=== PATIENT | female | born 1990 | race Caucasian/White ===

== ENCOUNTER 2019-11-24 17:32 | Emergency (ER) | payer BC, SELFPAY ==
[2019-11-24 17:51] VITALS: BP 149/97; PULSE 92; RESP 16; TEMP 36.4; O2SAT 97; BMI 33.4
--- NOTE | 2019-11-24 18:00 | ED_ITS ---
Entered by Luz Miranda, acting as scribe for Nov 24, 2019 17:32 HPI - Back Pain/Injury General: Chief Complaint: Back Pain/Injury Stated Complaint: Back pain Time Seen by Provider: 11/24/19 17:58 Source: patient Mode of arrival: ambulatory Limitations: no limitations History of Present Illness: HPI Narrative: 29 yo female presents to ED with complaints of back pain (sciatica). She said she woke with the pain this morning. She said just touching her low back hurts. She said moving and walking causes more pain. She said the pain is going down her R leg. She said she was here about a year ago and was told she had a deteriorating disc. MD elicited complaint: back pain Pertinent past history: prior back pain Onset (ago): hour(s) (woke this morning with the pain) Timing: constant Severity: severe Similar Symptoms Previously: Yes Quality: burning and sharp Location: lumbar spine Radiation: right upper leg Exacerbating factors: movement Relieving factors: none Context: other (woke with the pain) Associated symptoms: Reports difficulty walking; Deny abdominal pain, chills, fever(s), nausea or vomiting Treatments prior to arrival: NSAIDS Work related injury: No Review of Systems Const: Denies: fever or chills Eyes: Denies: change in vision ENMT: Denies: throat pain or mouth pain Card: Denies: chest pain Resp: Denies: shortness of breath GI: Denies: abdominal pain, nausea, vomiting or diarrhea : Denies: difficulty urinating Musc: Reports: back pain; Denies: joint pain Skin/Breast: Denies: rash Neuro: Reports: difficulty walking; Denies: headache or behavioral changes Psych: Denies: depression Endo: Denies: excessive urination Balta/Lymph: Denies: easy bruising All/Imm: Denies: hives PFSH ED PFSH: Statuses (acute, chronic, etc) shown below reflect problem list status as previously entered and may not be historically accurate Social History Smoking and tobacco status: current every day smoker Physical Exam Const: COMMON NORMALS: no apparent distress and healthy appearing HENMT: COMMON NORMALS: normocephalic and external nose normal HEAD & SCALP: normocephalic NOSE: external nose normal and no nasal discharge (nasal dischage) Eye: COMMON NORMALS: PERRL PUPIL: Yes PERRL Neck/C-Spine: COMMON NORMALS: full ROM and no lymphadenopathy Chest: COMMONS NORMALS: inspection of chest normal Resp: COMMON NORMALS: normal respiratory effort and clear to auscultation bilaterally AUSCULTATION: clear to auscultation bilaterally Cardio: COMMON NORMALS: regular rate and regular rhythm RATE: regular rate RHYTHM: regular rhythm GI: COMMON NORMALS: soft to palpation PALPATION: Yes soft Back/Pelvis: OTHER: Tenderness over right lower lumbar region. Patient has no midline tenderness. Patient has full strength of right leg and has no saddle anesthesia. Extremity: COMMON NORMALS: normal to inspection, full ROM and normal capillary refill Psych: COMMON NORMALS: mental status grossly normal and cooperative Skin: COMMON NORMALS: no rashes or lesions noted GENERAL SKIN EXAM: no rashes or lesions noted Course Vital Signs: Vital signs: Vital Signs Temperature 97.6 F 11/24/19 17:51 Pulse Rate 92 11/24/19 17:51 Respiratory Rate 16 11/24/19 17:51 Blood Pressure 149/97 11/24/19 17:51 Pulse Oximetry 97 11/24/19 17:51 MDM - Back Pain/Injury MDM Narrative: Medical decision making narrative: Patient presents with low back pain with sciatica. She has no signs of cord compression or epidural abscess. Patient has had history of back pain. We will place her on steroids along with pain medicine. She is to follow-up with her PCP in 3 to 5 days and return to the ER if worsening. Discharge Plan Discharge Patient Disposition: Home, Self-Care Clinical Impression: Lumbar pain Sciatica Qualifiers: Laterality: right Qualified Code(s): M54.31 - Sciatica, right side Condition: Stable Prescriptions: [place] 5-325 mg tablet 1 tab PO Q6H PRN (Reason: pain) Qty: 14 RF: 0 Robaxin-750 750 mg tablet 750 mg PO Q6H Qty: 30 RF: 0 prednisone 10 mg tablets,dose pack See Rx Instructions .ROUTE .COMPLEX Qty: 21 RF: 0 Discharge Orders: Discharge Order (Routine); Ordered 11/24/19 Ordered By: Delmy Marcum Referrals: Angélica Shen MD [Primary Care Provider] - 4-7 days Discharge Diet: Advance as tolerated Discharge Activity: Increase activity as tolerated Patient Instructions: Sciatica (ED), Lumbar Radiculopathy (ED) Coding Level of Care Code ED Manager [employer] for Pilar Basilio The documentation recorded by the Ruth meredith Valerie R, accurately reflects the service I personally performed and the decisions made by Jossue grimm Korby, MD Nov 24, 2019 17:32
[2019-11-24 18:10] VITALS: BP 137/86; PULSE 96; RESP 18; TEMP 36.6; O2SAT 98
[2019-11-24 18:13] VITALS: BP 137/86; PULSE 103; RESP 18; TEMP 36.6; O2SAT 96
[2019-11-24] MEDS: HYDROcodone-acetaminophen 10-325 mg Tablet 1 TAB PO (18:21)
[2019-11-24] MEDS: predniSONE 20 mg Tablet 60 MG PO (18:22)
== END 2019-11-24 18:22 | disposition home or self-care (01) ==
PROVIDERS: Emergency Provider Emergency Medicine; PCP Family Medicine
DX: M54.41 Lumbago with sciatica, right side (principal); F17.210 Nicotine dependence, cigarettes, uncomplicated
CPT/HCPCS: 99281; J7512

== ENCOUNTER 2020-01-02 20:29 | Emergency (ER) | payer BC, SELFPAY ==
[2020-01-02 20:42] VITALS: BP 127/92; PULSE 101; RESP 16; TEMP 36.9; O2SAT 97; BMI 33.9
[2020-01-02 20:49] LABS: Basophils % 0.6 %; Eosinophils # 0.1 10^3/uL (0.0-0.8); Eosinophils % 0.9 %; Hematocrit 40.7 % (37.0-47.0); Hemoglobin 13.5 g/dL (11.5-15.3); Lymphocytes # 1.4 10^3/uL (0.8-4.8); Lymphocytes % 21.6 %; Mean Corpuscular HGB Conc 33.2 g/dL (30.0-36.0); Mean Corpuscular Hemoglobin 29.9 pg (28.0-34.0); Mean Corpuscular Volume 90.2 fL (81-99); Mean Platelet Volume 10.5 fL (7.4-10.4); Monocytes # 0.6 10^3/uL (0.2-0.9); Monocytes % 9.3 %; Neutrophils # 4.3 10^3/uL (1.8-7.7); Neutrophils % 67.4 %; Nucleated Red Blood Cells % 0 %; Platelet Count 223 10^3/cmm (130-400); Red Blood Count 4.51 10^6/uL (4.1-5.3); Red Cell Distribution Width 13.1 % (12.1-15.1); White Blood Count 6.4 10^3/uL (4.0-10.0)
[2020-01-02 21:04] LABS: Alanine Aminotransferase 24 U/L (0-33); Albumin Level 4.4 g/dL (3.5-5.2); Alkaline Phosphatase 105 IU/L (35-105); Anion Gap 16.7 (5-19); Aspartate Amino Transferase 23 U/L (0-32); Blood Urea Nitrogen 10 mg/dL (6-20); Calcium 9.2 mg/dL (8.5-10.5); Carbon Dioxide 23 mmol/L (22-29); Chloride 100 mmol/L (98-107); Globulin 3.6 g/dL (1.3-4.6); Glomerular Filtration Rate 73.5 mL/min (90-130); Glucose 106 mg/dL (65-115); Lipase 16 U/L (13-60); Potassium 3.7 mmol/L (3.5-5.1); Sodium 136 mmol/L (136-145); Total Bilirubin 0.3 mg/dL (0.15-1.2)
[2020-01-02 21:25] VITALS: O2SAT 97
--- NOTE | 2020-01-02 21:27 | W.ED.URI ---
HPI - URI/Sore Throat General: Chief Complaint: Upper Respiratory Infection Stated Complaint: fever/vomiting Time Seen by Provider: 01/02/20 21:20 Source: patient Mode of arrival: ambulatory Limitations: no limitations History of Present Illness: HPI Narrative: Patient comes in with flulike symptoms since yesterday. Patient reports nausea vomiting, body aches, fever, cough and congestion. Patient appears mildly unwell. Patient appears in mild pain. MD elicited complaint: fever and cough Associated symptoms: Reports fever(s), nausea and vomiting Review of Systems General: Reports: 10 or more systems reviewed and unremarkable except in HPI and below Const: Reports: fever Resp: Reports: non-productive cough GI: Reports: nausea and vomiting PFSH ED PFSH: Social History Smoking and tobacco status: current every day smoker Female Reproductive History: Date of last menstrual period: 12/11/19 Physical Exam Const: COMMON NORMALS: no apparent distress and oriented x3 GENERAL APPEARANCE: cooperative HENMT: COMMON NORMALS: normocephalic, external ears normal, EAC's normal, TM's normal bilaterally and external nose normal HEAD & SCALP: normal to inspection and normocephalic FACE & SINUS: normal facial exam NOSE: external nose normal GENERAL EAR: hearing not grossly impaired EXTERNAL EAR: Yes external ears normal EXTERNAL AUDITORY CANAL: EAC's normal TYMPANIC MEMBRANE: TM's normal bilaterally MOUTH: oral and palatal mucosa normal THROAT: posterior oropharynx normal Eye: COMMON NORMALS: PERRL and EOMs intact bilaterally PUPIL: Yes PERRL Neck/C-Spine: COMMON NORMALS: full ROM and no lymphadenopathy Lymph: LYMPHATIC: no lymphedema noted Chest: COMMONS NORMALS: inspection of chest normal and palpation of chest normal Resp: COMMON NORMALS: normal respiratory effort and clear to auscultation bilaterally AUSCULTATION: clear to auscultation bilaterally Cardio: COMMON NORMALS: regular rate and regular rhythm RATE: regular rate RHYTHM: regular rhythm GI: COMMON NORMALS: soft to palpation AUSCULTATION: Yes hyperactive bowel sounds PALPATION: Yes soft and Yes tender (mild, general) : COMMON NORMALS: Yes no CVA tenderness BLADDER/KIDNEY EXAM: Yes no CVA tenderness Back/Pelvis: COMMON NORMALS: no CVA tenderness and thoracic and lumbar spine normal to inspection Extremity: COMMON NORMALS: normal to inspection GENERAL: No edema Neuro: COMMON NORMALS: oriented x3, moves all extremities and no focal motor deficits Psych: COMMON NORMALS: mental status grossly normal and cooperative Skin: COMMON NORMALS: no rashes or lesions noted GENERAL SKIN EXAM: no rashes or lesions noted Course Vital Signs: Vital signs: Vital Signs Temperature 98.5 F 01/02/20 20:42 Pulse Rate 101 H 01/02/20 20:42 Respiratory Rate 16 01/02/20 20:42 Blood Pressure 127/92 01/02/20 20:42 Pulse Oximetry 97 01/02/20 21:25 MDM - URI/Sore Throat MDM Narrative: Medical decision making narrative: Patient comes in today with complaints of body aches, cough, nausea and vomiting. Patient reports illness starting yesterday. Patient appears unwell. Respirations are even lungs are clear to auscultation. Abdomen soft with some mild tenderness. Vital signs are normal. Skin is warm and dry. Differential diagnosis includes pneumonia, influenza, viral syndrome, strep pharyngitis, urinary tract infection, sepsis, gastroenteritis. Laboratory values were fairly normal. Influenza test was positive for type a flu. Patient was treated with IV fluids, dancer Mahan, and ketorolac for symptoms. Patient had improvement of overall symptoms. Patient will be continued on oseltamivir and medications for supportive care. Patient reports understanding agreed to plan. Lab Data: Labs: Lab Results 01/02/20 01/02/20 01/02/20 Range/Units 20:40 20:40 20:40 WBC 6.4 (4.0-10.0) 10^3/ uL RBC 4.51 (4.1-5.3) 10^6/u L Hgb 13.5 (11.5-15.3) g/dL Hct 40.7 (37.0-47.0) % MCV 90.2 (81-99) fL MCH 29.9 (28.0-34.0) pg MCHC 33.2 (30.0-36.0) g/dL RDW 13.1 (12.1-15.1) % Plt Count 223 (130-400) 10^3/c mm MPV 10.5 H (7.4-10.4) fL Neut % (Auto) 67.4 % Lymph % (Auto) 21.6 % [place] % (Auto) 9.3 % Eos % (Auto) 0.9 % Baso % (Auto) 0.6 % Neut # (Auto) 4.3 (1.8-7.7) 10^3/u L Lymph # (Auto) 1.4 (0.8-4.8) 10^3/u L [place] # (Auto) 0.6 (0.2-0.9) 10^3/u L Eos # (Auto) 0.1 (0.0-0.8) 10^3/u L Baso # (Auto) 0.0 (0.0-0.1) 10^3/u L Nucleated RBC % (a uto) 0 % Nucleated RBCs # 0.0 /100WBC Sodium 136 (136-145) mmol/L Potassium 3.7 (3.5-5.1) mmol/L Chloride 100 (98-107) mmol/L Carbon Dioxide 23 (22-29) mmol/L Anion Gap 16.7 (5-19) BUN 10 (6-20) mg/dL Creatinine 0.9 (0.5-0.9) mg/dL GFR Calculation 73.5 L (90-130) mL/min Glucose 106 (65-115) mg/dL Calcium 9.2 (8.5-10.5) mg/dL Total Bilirubin 0.3 (0.15-1.2) mg/dL AST 23 (0-32) U/L ALT 24 (0-33) U/L Alkaline Phosphata se 105 (35-105) IU/L Total Protein 8.0 (6.6-8.7) g/dL Albumin 4.4 (3.5-5.2) g/dL Globulin 3.6 (1.3-4.6) g/dL Lipase 16 (13-60) U/L HCG, Qual Negative (Negative) Urine Color (Yellow) Urine Appearance (CLEAR) Urine pH (5-7) Ur Specific Gravit y (1.005-1.030) Urine Protein (Negative) Urine Glucose (UA) (Normal) Urine Ketones (Negative) Urine Blood (Negative) Urine Nitrate (Negative) Urine Bilirubin (NEGATIVE) Urine Urobilinogen (Negative) mg/dL Ur Leukocyte Aicha ase (Negative) Influenza Type A A g (Negative) POC Influenza B Ag (Negative) 01/02/20 01/02/20 Range/Units 20:40 20:49 WBC (4.0-10.0) 10^3/ uL RBC (4.1-5.3) 10^6/u L Hgb (11.5-15.3) g/dL Hct (37.0-47.0) % MCV (81-99) fL MCH (28.0-34.0) pg MCHC (30.0-36.0) g/dL RDW (12.1-15.1) % Plt Count (130-400) 10^3/c mm MPV (7.4-10.4) fL Neut % (Auto) % Lymph % (Auto) % [place] % (Auto) % Eos % (Auto) % Baso % (Auto) % Neut # (Auto) (1.8-7.7) 10^3/u L Lymph # (Auto) (0.8-4.8) 10^3/u L [place] # (Auto) (0.2-0.9) 10^3/u L Eos # (Auto) (0.0-0.8) 10^3/u L Baso # (Auto) (0.0-0.1) 10^3/u L Nucleated RBC % (a uto) % Nucleated RBCs # /100WBC Sodium (136-145) mmol/L Potassium (3.5-5.1) mmol/L Chloride (98-107) mmol/L Carbon Dioxide (22-29) mmol/L Anion Gap (5-19) BUN (6-20) mg/dL Creatinine (0.5-0.9) mg/dL GFR Calculation (90-130) mL/min Glucose (65-115) mg/dL Calcium (8.5-10.5) mg/dL Total Bilirubin (0.15-1.2) mg/dL AST (0-32) U/L ALT (0-33) U/L Alkaline Phosphata se (35-105) IU/L Total Protein (6.6-8.7) g/dL Albumin (3.5-5.2) g/dL Globulin (1.3-4.6) g/dL Lipase (13-60) U/L HCG, Qual (Negative) Urine Color Yellow (Yellow) Urine Appearance Clear (CLEAR) Urine pH 6 (5-7) Ur Specific Gravit y 1.020 (1.005-1.030) Urine Protein Neg (Negative) Urine Glucose (UA) Norm (Normal) Urine Ketones Negative (Negative) Urine Blood Neg (Negative) Urine Nitrate Negative (Negative) Urine Bilirubin Neg (NEGATIVE) Urine Urobilinogen 1 H (Negative) mg/dL Ur Leukocyte Aicha ase Negative (Negative) Influenza Type A A g Positive H (Negative) POC Influenza B Ag Negative (Negative) Discharge Plan Discharge Patient Disposition: Home, Self-Care Clinical Impression: Influenza Condition: Stable Prescriptions: New oseltamivir 75 mg capsule 75 mg PO BID 5 Days Qty: 10 RF: 0 ondansetron HCl 4 mg tablet 4 mg PO Q8H 3 Days Qty: 9 RF: 0 ibuprofen 600 mg tablet 600 mg PO Q6H PRN (Reason: fever or pain) Qty: 30 RF: 0 No Action hydrocodone-acetaminophen [[place]] 5-325 mg tablet 1 tab PO Q6H PRN (Reason: pain) Qty: 14 RF: 0 Tylenol 325 mg Tablet 325 mg PO QID PRN (Reason: Fever) RF: 0 ibuprofen 200 mg Tablet 200 mg PO Q6H PRN (Reason: Fever) RF: 0 Discharge Orders: Discharge Order (Routine); Ordered 01/02/20 Ordered By: Jasmeet Madrid Referrals: Angélica Shen MD [Primary Care Provider] - Discharge Diet: Clear Liquid Discharge Activity: Increase activity as tolerated Patient Instructions: Influenza (ED) Activity Restrictions/Additional Instructions: Home and rest. Drink plenty of fluids. Acetaminophen and ibuprofen as needed for pain and fever. Take medications as directed. Follow-up with primary care in 3 days as needed. Return to the ER for worsening signs and symptoms. Coding Level of Care Code ED Waterworks Operator for Lidag Fwd Exam Comprehensive
[2020-01-02 21:31] LABS: Add Urine Microscopic? NO
[2020-01-02 21:38] LABS: Bilirubin Urine Neg (NEGATIVE); Blood Urine Neg (Negative); Glucose Urine UA Norm (Normal); HCG Qualitative Urine. Negative (Negative); Ketones Urine Negative (Negative); Leukocyte Esterase Urine Negative (Negative); Nitrate Urine Negative (Negative); Protein Urine Neg (Negative); Urine Appearance Clear (CLEAR); Urine Color Yellow (Yellow); Urobilinogen Urine 1 mg/dL (Negative); pH Urine 6 (5-7)
[2020-01-02] MEDS: sodium chloride 0.9% 1,000 ML 999 ML IV (21:47)
[2020-01-02] MEDS: ondansetron 2 mg/ML SDV 2 mL 4 MG IVP (21:48)
[2020-01-02] MEDS: ketorolac 30 mg/mL INJ 15 MG IVP (21:48)
[2020-01-02 21:49] LABS: Influenza A by IFA Positive (Negative); Influenza B by IFA Negative (Negative)
[2020-01-02] MEDS: oseltamivir phosphate 75 mg Capsule PO (22:19)
[2020-01-02 22:39] VITALS: BP 121/86; PULSE 77; RESP 17; O2SAT 99
== END 2020-01-02 22:40 | disposition home or self-care (01) ==
PROVIDERS: Emergency Medicine; Emergency Provider Nurse Practitioner Family; PCP Family Medicine
DX: J09.X2 Influenza due to identified novel influenza A virus with other respiratory manifestations (principal); F17.200 Nicotine dependence, unspecified, uncomplicated
CPT/HCPCS: 36415; 80053; 81003; 81025; 83690; 85025; 87804; 96361; 96374; 96375; 99283; J1885; J2405; J7030

== ENCOUNTER 2020-04-29 08:45 | Emergency (ER) | payer BC, SELFPAY ==
[2020-04-29 08:49] VITALS: BP 149/87; PULSE 93; TEMP 36.6; O2SAT 98; BMI 33.9
--- NOTE | 2020-04-29 09:04 | XRR_ITS ---
PROCEDURE INFORMATION: Exam: XR Left Knee Exam date and time: 04/29/2020 9:27 AM Age: 30 years old Clinical indication: Injury or trauma; Fall; Initial encounter; Sprain or strain; Patella or knee; Injury date: 04/28/20 and 04/29/20; Injury details: PT fell yesterday and today; Hurts to bear weight. C/O left knee pain TECHNIQUE: Imaging protocol: XR Left knee. Views: 3 views. COMPARISON: No relevant prior studies available. FINDINGS: Bones/joints: No fracture. No dislocation. No joint effusion. No joint space narrowing. Bone islands in the proximal tibial metaphysis and medial epiphysis. Soft tissues: No acute soft tissue abnormality. XR/XR knee LT 3V* [id number] IMPRESSION: No acute osseous abnormality.
--- NOTE | 2020-04-29 09:05 | ED_ITS ---
HPI - Extremity Problem General: Chief complaint: Extremity Injury, Lower Stated complaint: left knee injury Time Seen by Provider: 04/29/20 08:55 History of Present Illness: HPI Narrative: Patient stated he sprained her knee last night stepping off a subfloor and it was stiff this morning she went to go down a step and it felt like it slipped out on her again and it hurt really bad now. Complaint: joint pain Onset (ago): hour(s) Pain Consistency: constant Location: left and knee Severity scale (1-10): 6 Quality: aching Radiation: none Relieving factors: immobilization Exacerbating factors: weight bearing Associated symptoms: Reports no associated symptoms; Deny chest pain, fever(s) or rash Review of Systems Const: Denies: fever(s), chills or body aches Eyes: Denies: change in vision or blurry vision ENMT: Denies: throat pain or nasal congestion Card: Denies: chest pain or dyspnea on exertion Resp: Denies: dyspnea, productive cough or non-productive cough GI: Denies: abdominal pain, nausea or vomiting Musc: Reports: joint pain; Denies: extremity pain Skin/Breast: Denies: rash Neuro: Denies: headache(s) Psych: Denies: anxiety or depression Balta/Lymph: Denies: easy bruising PFSH ED PFSH: Social History Smoking and tobacco status: current every day smoker Female Reproductive History: Date of last menstrual period: 12/11/19 Physical Exam Const: COMMON NORMALS: no acute distress, average body habitus and patient oriented x3 HENMT: COMMON NORMALS: normocephalic HEAD & SCALP: normal to inspection and normocephalic FACE & SINUS: normal facial exam Eye: COMMON NORMALS: conjunctivae normal GENERAL EYE: appearance normal, both eyes and all related structures CONJUNCTIVA: Yes conjunctivae normal Neck/C-Spine: COMMON NORMALS: no JVD Chest: COMMONS NORMALS: normal inspection of the chest Resp: COMMON NORMALS: normal respiratory effort and clear to auscultation bilaterally AUSCULTATION: clear to auscultation bilaterally Cardio: COMMON NORMALS: no JVD, regular rate and regular rhythm RATE: regular rate RHYTHM: regular rhythm GI: COMMON NORMALS: Normal to inspection, nondistended, normoactive bowel sounds present Extremity: COMMON NORMALS: normal to inspection and full ROM LEFT LOWER EXTREMITY: Yes knee joint (No swelling unable to assess for range of motion due to pain pain with palpation throughout the knee) Neuro: COMMON NORMALS: patient oriented x3 Course Vital Signs: Vital signs: Vital Signs Temperature 97.9 F 04/29/20 08:49 Pulse Rate 93 04/29/20 08:49 Blood Pressure 149/87 04/29/20 08:49 Pulse Oximetry 98 04/29/20 08:49 Discharge Plan Discharge Prescriptions: No Action hydrocodone-acetaminophen [[place]] 5-325 mg tablet 1 tab PO Q6H PRN (Reason: pain) Qty: 14 RF: 0 Tylenol 325 mg Tablet 325 mg PO QID PRN (Reason: Fever) RF: 0 ibuprofen 200 mg Tablet 200 mg PO Q6H PRN (Reason: Fever) RF: 0 ibuprofen 600 mg tablet 600 mg PO Q6H PRN (Reason: fever or pain) Qty: 30 RF: 0 Coding Level of Care Code ED Environmental Conservation Officer for Lidag Chetna
[2020-04-29] MEDS: ketorolac 60 mg/2 mL INJ IM (09:58)
[2020-04-29 10:08] VITALS: BP 141/82; PULSE 90; RESP 18; O2SAT 96
--- NOTE | 2020-04-29 11:30 | PC.NURSE ---
patient declined crutches
== END 2020-04-29 11:31 | disposition home or self-care (01) ==
PROVIDERS: Emergency Provider Nurse Practitioner Family; PCP Family Medicine
DX: S89.92XA Unspecified injury of left lower leg, initial encounter (principal); F17.210 Nicotine dependence, cigarettes, uncomplicated; X58.XXXA Exposure to other specified factors, initial encounter
CPT/HCPCS: 12345; 73562; 96372; 99281; 99283; J1885

== ENCOUNTER 2020-08-03 07:52 | Emergency (ER) | payer SELFPAY ==
[2020-08-03 07:54] VITALS: BP 151/97; PULSE 81; RESP 18; TEMP 36.7; O2SAT 97; BMI 30.4
--- NOTE | 2020-08-03 08:02 | W.ED.EAR ---
HPI - Ear Problem General: Chief complaint: Ear Stated complaint: Ear Pain Time Seen by Provider: 08/03/20 07:58 Source: patient Mode of arrival: ambulatory Limitations: no limitations History of Present Illness: HPI Narrative: 30-year-old female patient presents to the emergency department stating that she has a bug in her left ear. Patient states it is causing some pain and irritants. Patient denies any other complaints. Patient denies any fever. Patient denies any headache. Patient denies any visual disturbance. MD Complaint: ear pain and foreign body Location: left ear Duration: constant Severity: moderate Relieving factors: nothing Context: other (Bug) Discharge from ear: no Associated symptoms: Reports no associated symptoms and ear or mastoid pain; Denies fever(s), headache(s) or neck pain Treatment prior to arrival: none Review of Systems General: Reports: 10 or more systems reviewed and unremarkable except in HPI and below Const: Denies: fever(s) or chills Eyes: Denies: change in vision or blurry vision ENMT: Reports: ear or mastoid pain; Denies: throat pain, odynophagia, dental pain or ear discharge Card: Denies: chest pain or palpitations Resp: Denies: dyspnea, productive cough, non-productive cough or wheezing GI: Denies: abdominal pain, nausea, vomiting or diarrhea : Denies: flank pain, difficulty voiding or dysuria Musc: Denies: neck pain or back pain Skin/Breast: Denies: rash or pruritus Neuro: Denies: headache(s) or numbness in extremities Psych: Denies: suicidal ideation or homicidal ideation All/Imm: Denies: urticaria [facility] ED PFSH: Social History Smoking and tobacco status: current every day smoker Female Reproductive History: Date of last menstrual period: 12/11/19 Physical Exam Const: COMMON NORMALS: no acute distress, average body habitus, patient oriented x3, no limitations, healthy appearing, alert and well nourished HENMT: COMMON NORMALS: normocephalic, atraumatic, hearing grossly normal bilaterally, external ears normal, EAC's normal, Normal external nose present, Normal nasal mucous membranes and turbinates present, moist oral mucous membranes, oropharynx normal, dentition normal and gingiva normal HEAD & SCALP: normocephalic and atraumatic NOSE: Normal external nose present and Normal nasal mucous membranes and turbinates present EXTERNAL EAR: Yes external ears normal EXTERNAL AUDITORY CANAL: EAC's normal TYMPANIC MEMBRANE: TM normal on the right and unable to visualize TM (due to an insect in ear cancal on left side) Eye: COMMON NORMALS: Equal, round and reactive pupils present, EOMs intact bilaterally, conjunctivae normal, no scleral icterus, no papilledema, normal visual christiansen by confrontation and fundi normal bilaterally CONJUNCTIVA: Yes conjunctivae normal PUPIL: Yes Equal, round and reactive pupils present DIRECT OPHTHALMOSCOPY: Yes no papilledema and Yes fundi normal bilaterally Neck/C-Spine: COMMON NORMALS: no JVD Resp: COMMON NORMALS: normal respiratory effort, No retractions, No use of accessory muscles, clear to auscultation bilaterally and percussion normal AUSCULTATION: clear to auscultation bilaterally PERCUSSION: percussion normal Cardio: COMMON NORMALS: no JVD, regular rate and regular rhythm RATE: regular rate RHYTHM: regular rhythm Neuro: COMMON NORMALS: patient oriented x3, CN's II-XII intact bilaterally, moves all extremities, no focal motor deficits, no sensory deficits noted and gait normal SENSORIUM/ORIENTATION: Yes alert Psych: COMMON NORMALS: mental status grossly normal, Normal thought process present, cooperative, normal affect, speech normal, activity/motor behavior normal, denies hallucinations, denies homicidal ideation and denies suicidal ideation SPEECH: Yes normal speech THOUGHT PROCESS: Normal thought process present Skin: COMMON NORMALS: no rashes or lesions noted, no wounds, turgor normal, no jaundice, no petechiae and no mottling GENERAL SKIN EXAM: no rashes or lesions noted and turgor normal Course ED course: will place colace in ear then attempt to remove insect with irrigation Vital Signs: Vital signs: Vital Signs Temperature 98.1 F 08/03/20 07:54 Pulse Rate 81 08/03/20 07:54 Respiratory Rate 18 08/03/20 07:54 Blood Pressure 151/97 08/03/20 07:54 Pulse Oximetry 97 08/03/20 07:54 MDM - Ear MDM Narrative: Medical decision making narrative: Pt is well appearing non toxic and in no acute dustress. Pt does have what appears to be a granado in the left ear cancel. will place colace in ear then attempt to remove insect with irrigation. irrigation was not successful. Attempted to extraxt with forceps and extractor pt was unable to tolerate. At this point I feel patient will best be served to follow up with ENT. I have advised patient of follow up return precautions and home care Discharge Plan Discharge Patient Disposition: Home Clinical Impression: Foreign body in ear Qualifiers: Encounter type: initial encounter Laterality: left Qualified Code(s): T16.2XXA - Foreign body in left ear, initial encounter Condition: Stable Prescriptions: No Action hydrocodone-acetaminophen [[place]] 5-325 mg tablet 1 tab PO Q6H PRN (Reason: pain) Qty: 14 RF: 0 Tylenol 325 mg Tablet 325 mg PO QID PRN (Reason: Fever) RF: 0 ibuprofen 200 mg Tablet 200 mg PO Q6H PRN (Reason: Fever) RF: 0 ibuprofen 600 mg tablet 600 mg PO Q6H PRN (Reason: fever or pain) Qty: 30 RF: 0 ketorolac 10 mg tablet 10 mg PO TID PRN (Reason: pain) Qty: 10 RF: 0 Discharge Orders: Discharge Order (Routine); Ordered 08/03/20 Ordered By: Stacy Cross Referrals: Angélica Shen MD [Primary Care Provider] - Discharge Diet: Advance as tolerated Discharge Activity: Resume usual activity Activity Restrictions/Additional Instructions: We will call you with an appointment time to see ENT on wednesday Stand Alone Forms: Work/School Release Coding Level of Care Code ED Glass Technician for Pilar Fwd Exam Comprehensive
--- NOTE | 2020-08-05 09:54 | DCPLANNER ---
Addendum entered by Megan Blair 08/12/20 12:02: Dr. Cobos office called informing correctional counselor/case manager that patient called and does not want an appointment at this time, due to financial reasons. Addendum entered by Megan Blair 08/05/20 10:07: manager income tax faxed patients information to the ENT clinic, so clinic would have the patients information if patient called to schedule an appointment. Original Note: manager income tax had message to schedule a follow up appointment for patient with Dr. Estrada, ENT. manager income tax called the office of Dr. Estrada, gave clinic patients information, a follow up appointment was scheduled for Wednesday, August 05, 2020 at 11:00. Patient does not have insurance at this time, correctional counselor/case manager was told that it would cost patient 175.00 up front. manager income tax spoke with patient, she stated that she should have insurance coverage for this month, she also stated that she would not be able to attend appointment at that time due a another appointment scheduled. manager income tax gave patient the number to Dr. Estrada and told patient that correctional counselor/case manager would cancel appointment scheduled for 08.05.20, and patient can call clinic and have the clinic run patients insurance to see if it was good. manager income tax called clinic and explained that patients appointment would need to be canceled and that patient would be calling to make a follow up appointment.
== END 2020-08-03 09:30 | disposition home or self-care (01) ==
PROVIDERS: Emergency Provider Registered Nurse; PCP Family Medicine
DX: T16.2XXA Foreign body in left ear, initial encounter (principal); F17.210 Nicotine dependence, cigarettes, uncomplicated; X58.XXXA Exposure to other specified factors, initial encounter
CPT/HCPCS: 12345; 99281; 99282

== ENCOUNTER 2020-12-28 07:50 | Emergency (ER) | payer SELFPAY ==
[2020-12-28 07:54] VITALS: BP 136/108; PULSE 91; RESP 18; TEMP 36.6; O2SAT 97; BMI 33.9
--- NOTE | 2020-12-28 07:59 | XRR_ITS ---
PROCEDURE INFORMATION: Exam: XR Lumbosacral Spine Exam date and time: 12/28/2020 8:15 AM Age: 30 years old Clinical indication: Injury or trauma; Fall; Blunt trauma (contusions or hematomas); Additional info: Fall , low back pain TECHNIQUE: Imaging protocol: XR of the lumbosacral spine. Views: 2 or 3 views. COMPARISON: CT Abdomen/Pelvis Renal [id number] 07/01/2018 2:58 PM FINDINGS: Bones/joints: No fracture or other acute abnormalities are seen. Mild degenerative changes are present with mild narrowing of the L5-S1 disc space and mild sclerosis in the lower lumbar facet joints. Soft tissues: Unremarkable. XR/XR lumbar spine 2-3V* [id number] IMPRESSION: 1. Mild degenerative disease. 2. No acute abnormality.
--- NOTE | 2020-12-28 08:02 | W.ED.FALL ---
HPI - Fall General: Chief Complaint: Fall Stated Complaint: fall Time Seen by Provider: 12/28/20 07:51 History of Present Illness: HPI Narrative: 30-year-old female presents emergency room complaining of low back pain after slipping and falling in the shower. She states she hit her back on the edge of the tub. She has been able to ambulate. She said back problems in the past. She took some ibuprofen and half of a hydrocodone tablet prior to arrival. MD complaint: fall Onset (ago): minute(s) Fall from: standing Fall witnessed: no Place fall occurred: home Loss of consciousness: None Prolonged down time: no Context: tripped/slipped Location of injury: back Quality: sharp Associated symptoms-after fall: Denies abdominal pain, chest pain, confusion, difficulty walking, headache(s), hematuria, lightheadedness, neck pain, numbness, short of breath, vertigo or weakness Review of Systems Const: Denies: fever(s), chills, body aches, change in appetite, fatigue or malaise ENMT: Denies: throat pain, ear or mastoid pain, nasal discharge or nasal congestion Card: Denies: chest pain or lightheadedness Resp: Denies: dyspnea, productive cough or non-productive cough GI: Denies: abdominal pain : Denies: hematuria Musc: Denies: neck pain Skin/Breast: Denies: rash or pruritus Neuro: Denies: headache(s), difficulty walking, vertigo or confusion PFS ED PFSH: Social History Smoking and tobacco status: current every day smoker Female Reproductive History: Date of last menstrual period: 12/11/19 Physical Exam Const: COMMON NORMALS: no acute distress GENERAL APPEARANCE: cooperative and comfortable ORIENTATION/CONSCIOUSNESS: Yes awake, Yes oriented to person, Yes oriented to place and Yes oriented to time HENMT: COMMON NORMALS: normocephalic, atraumatic and hearing grossly normal bilaterally HEAD & SCALP: normocephalic and atraumatic Eye: COMMON NORMALS: Equal, round and reactive pupils present, EOMs intact bilaterally, conjunctivae normal and no scleral icterus CONJUNCTIVA: Yes conjunctivae normal PUPIL: Yes Equal, round and reactive pupils present Neck/C-Spine: COMMON NORMALS: no JVD Resp: COMMON NORMALS: normal respiratory effort, No retractions, No use of accessory muscles and clear to auscultation bilaterally AUSCULTATION: clear to auscultation bilaterally Cardio: COMMON NORMALS: no JVD, regular rate, regular rhythm and No murmurs present (Cardio) RATE: regular rate RHYTHM: regular rhythm Extremity: COMMON NORMALS: normal to inspection, capillary refill normal, no clubbing, cyanosis or edema, no calf tenderness and no pedal edema Neuro: SENSORIUM/ORIENTATION: Yes oriented to person, Yes oriented to place and Yes oriented to time Skin: COMMON NORMALS: no rashes or lesions noted GENERAL SKIN EXAM: no rashes or lesions noted Course Vital Signs: Vital signs: Vital Signs Temperature 97.8 F 12/28/20 07:54 Pulse Rate 87 12/28/20 09:52 Respiratory Rate 18 12/28/20 09:52 Blood Pressure 134/84 12/28/20 09:52 Pulse Oximetry 98 12/28/20 09:52 MDM - Fall MDM Narrative: Medical decision making narrative: No acute fractures hydrocodone and ibuprofen previously prescribed avoid hydrocodone ketorolac in the same setting. Ice or heat as needed for comfort. Discharge Plan Discharge Patient Disposition: Home Clinical Impression: Low back pain Condition: Stable Prescriptions: No Action hydrocodone-acetaminophen [Milo] 5-325 mg tablet 1 tab PO Q6H PRN (Reason: pain) Qty: 14 RF: 0 Tylenol 325 mg Tablet 325 mg PO QID PRN (Reason: Fever) RF: 0 ibuprofen 200 mg Tablet 200 mg PO Q6H PRN (Reason: Fever) RF: 0 ibuprofen 600 mg tablet 600 mg PO Q6H PRN (Reason: fever or pain) Qty: 30 RF: 0 ketorolac 10 mg tablet 10 mg PO TID PRN (Reason: pain) Qty: 10 RF: 0 Discharge Orders: Discharge ED (Routine); Ordered 12/28/20 Ordered By: Jonathan Cronin Discharge Diet: Usual diet Discharge Activity: Increase activity as tolerated Patient Instructions: Opioid Safety Stand Alone Forms: Work/School Release Coding Level of Care Code ED Quantitative Analyst Developer for Lidag Fwd Exam Comprehensive
[2020-12-28 08:21] VITALS: RESP 18
[2020-12-28] MEDS: morphine 4 mg/mL SDV 1 mL IVP (08:21)
[2020-12-28] MEDS: orphenadrine 30 mg/mL Inj 2 mL 60 MG IM (08:24)
[2020-12-28 09:52] VITALS: BP 134/84; PULSE 87; RESP 18; O2SAT 98
== END 2020-12-28 09:53 | disposition home or self-care (01) ==
PROVIDERS: Emergency Provider Family Medicine
DX: M54.5 Low back pain (principal); F17.210 Nicotine dependence, cigarettes, uncomplicated
CPT/HCPCS: 72100; 96372; 96374; 99283; J2270; J2360

== ENCOUNTER 2021-03-29 08:34 | Emergency (ER) | payer SELFPAY ==
[2021-03-29 08:40] VITALS: BP 131/98; PULSE 84; RESP 15; TEMP 36.9; O2SAT 98; BMI 33.4
--- NOTE | 2021-03-29 08:47 | XRR_ITS ---
PROCEDURE INFORMATION: Exam: XR Right Shoulder Exam date and time: 03/29/2021 9:07 AM Age: 31 years old Clinical indication: Injury or trauma; Fall; Blunt trauma (contusions or hematomas); Shoulder; Right; Additional info: Fall with shoulder pain TECHNIQUE: Imaging protocol: XR Right shoulder. Views: 2 or more views. COMPARISON: No relevant prior studies available. FINDINGS: Bones/joints: Normal. Soft tissues: Normal. XR/XR shoulder RT min 2V* [id number] IMPRESSION: No acute findings.
--- NOTE | 2021-03-29 08:47 | W.ED.EXTPRO ---
HPI - Extremity Problem General: Chief complaint: Extremity Injury, Upper Stated complaint: LEFT SHOULDER PAIN Time Seen by Provider: 03/29/21 08:35 History of Present Illness: HPI Narrative: Patient is a 31-year-old female comes to the ED with left shoulder pain. Patient says she was getting out of her bed today and she tripped and fell landing on her left shoulder. While getting back up she fell again landed on her left shoulder and causing her pain. Patient says she felt a pop when she hit her left shoulder. She rates her pain currently an 8 out of 10 and says that any abduction of left arm causes pain up into her shoulder. Associated symptoms: Deny chest pain, fever(s) or rash Review of Systems Const: Denies: fever(s), chills or fatigue Eyes: Denies: change in vision or eye discomfort ENMT: Denies: throat pain, odynophagia, nasal discharge or nasal congestion Card: Denies: chest pain, palpitations, edema, swelling of feet/ankles, dyspnea on exertion or orthopnea Resp: Denies: dyspnea, productive cough or non-productive cough GI: Denies: abdominal pain, nausea, vomiting, diarrhea, constipation or hematochezia : Denies: flank pain, dysuria or hematuria Musc: Reports: extremity pain (Left shoulder); Denies: neck pain, back pain or extremity swelling Skin/Breast: Denies: rash or new lesions Neuro: Denies: headache(s), numbness in extremities or weakness in extremities PFS ED PFSH: Social History Smoking and tobacco status: current every day smoker Female Reproductive History: Date of last menstrual period: 12/11/19 Physical Exam Narrative: EXAM NARRATIVE: Patient is a 31-year-old female that is sitting on the exam bed while in the room she is using her right arm to hold her left shoulder. She appears uncomfortable and in some pain. Const: COMMON NORMALS: patient oriented x3 and alert GENERAL APPEARANCE: cooperative; not comfortable (Patient appears uncomfortable in some pain. she is keeping left arm still ) HENMT: COMMON NORMALS: normocephalic HEAD & SCALP: normocephalic MOUTH: Normal oral and palatal mucosa present THROAT: posterior oropharynx normal and uvula midline Neck/C-Spine: COMMON NORMALS: supple GENERAL: Yes normal visual inspection Resp: COMMON NORMALS: normal respiratory effort, No retractions, No use of accessory muscles and clear to auscultation bilaterally AUSCULTATION: clear to auscultation bilaterally Cardio: COMMON NORMALS: regular rate, regular rhythm, S1 normal heart sound present, S2 normal heart sound present, No gallops present (Cardio), No clicks present (Cardio), No murmurs present (Cardio) and Peripheral pulses 2+ throughout RATE: regular rate RHYTHM: regular rhythm HEART SOUNDS: S1 normal heart sound present and S2 normal heart sound present PERIPHERAL PULSES: Peripheral pulses 2+ throughout GI: COMMON NORMALS: Normal to inspection, nondistended, normoactive bowel sounds present, Soft to palpation, non-tender and no masses PALPATION: Yes Soft to palpation : COMMON NORMALS: Yes no CVA tenderness BLADDER/KIDNEY EXAM: Yes no CVA tenderness Back/Pelvis: COMMON NORMALS: no CVA tenderness Extremity: LEFT UPPER EXTREMITY: Yes shoulder joint Left shoulder joint: Yes inspection (No visible deformity seen.), Yes palpation (Tender over AC joint), Yes ROM (Limited due to pain) and Yes neurovascular exam (Neurovascular intact) Neuro: COMMON NORMALS: patient oriented x3 and moves all extremities SENSORIUM/ORIENTATION: Yes alert Skin: GENERAL SKIN EXAM: dry skin Course Vital Signs: Vital signs: Vital Signs Temperature 98.4 F 03/29/21 08:40 Pulse Rate 84 03/29/21 08:40 Respiratory Rate 15 03/29/21 08:40 Blood Pressure 131/98 03/29/21 08:40 Pulse Oximetry 98 03/29/21 08:40 MDM - Extremity (Nontraumatic) MDM Narrative: Medical decision making narrative: Patient is a 31-year-old female comes to the ED with left shoulder injury. Patient's left arm neurovascular intact and no visible deformity noted. X-ray of left shoulder showed no acute findings. Patient directed with injury of left shoulder and discharged in a shoulder sling. She was told to wear sling for the next 2 to 3 days to allow for healing. Follow-up with PCP in 5 to 7 days for reevaluation. Imaging Data^: Xray Ortho: Attestation: I personally reviewed and interpreted this imaging study as follows: My impression: Left shoulder x-ray?no acute fractures or dislocations seen. Radiologist's impression: [facility] [address] [place] [address] XRay Report Signed Patient: Stacy Graham Unit #: [id number] : 1990 Age/Sex: 31 / F ADM Date: 03/29/21 Loc: ER Room/Bed: Attending Dr: Ordering Provider/Ordering MD: Jonathan Cronin DO Date of Service: 03/29/21 Procedure(s): XR shoulder LT min 2V* [id number] Accession Number(s): [id number] Report Number: [id number] PROCEDURE INFORMATION: Exam: XR Left Shoulder Exam date and time: 03/29/2021 9:10 AM Age: 31 years old Clinical indication: Injury or trauma; Fall; Blunt trauma (contusions or hematomas); Shoulder; Left; Additional info: Pain TECHNIQUE: Imaging protocol: XR Left shoulder. Views: 2 or more views. COMPARISON: CR (CHEST, ) 03/29/2021 8:55 AM FINDINGS: Bones/joints: Normal. Soft tissues: Normal. XR/XR shoulder LT min 2V* [id number] IMPRESSION: No acute findings. Dictated By: Usama Farah Signed By: Usama Farah Signed Date/Time: 03/29/21 0942 Discharge Plan Discharge Patient Disposition: Home Clinical Impression: Injury of shoulder, left Qualifiers: Encounter type: initial encounter Qualified Code(s): S49.92XA - Unspecified injury of left shoulder and upper arm, initial encounter Condition: Stable Prescriptions: No Action No Known Home Medications RF: 0 Discharge Orders: Discharge ED (Routine); Ordered 03/29/21 Ordered By: Ahmet Brewer Discharge Diet: Regular Discharge Activity: Increase activity as tolerated Patient Instructions: Shoulder Sprain (ED) Activity Restrictions/Additional Instructions: Follow-up with medical provider as directed in 5 to 7 days for reevaluation. Wear shoulder sling for the next 2 to 3 days to allow for healing. Remember to remove arm from shoulder sling multiple times throughout the day and perform some range of motion exercises for shoulder to prevent frozen shoulder. Apply cold pack and rest. Take ibuprofen or Tylenol for any pain. Return to the ER or your medical provider if condition worsens. Please read and understand discharge instructions. Thank you for choosing [facility] for your healthcare needs today. Please realize this is an emergency room and that we are providing you with a medical screening exam and this may not be complete and all inclusive of all the testing and or work up that you may need to determine your ailment or severity of your illness. It is very important that you follow up as instructed or that you return to the Emergency Department should you have concerns or if your condition changes or worsens in any way. Stand Alone Forms: Work/School Release Coding Level of Care Code ED Digital Content Manager for Chg Fwd Exam Comprehensive
[2021-03-29] MEDS: HYDROcodone-acetaminophen 7.5-325 mg Tablet 1 TAB PO (09:08)
== END 2021-03-29 09:53 | disposition home or self-care (01) ==
PROVIDERS: Emergency Provider Physician Assistant
DX: S49.92XA Unspecified injury of left shoulder and upper arm, initial encounter (principal); F17.210 Nicotine dependence, cigarettes, uncomplicated; W01.0XXA Fall on same level from slipping, tripping and stumbling without subsequent striking against object, initial encounter
CPT/HCPCS: 73030; 99283

== ENCOUNTER 2022-01-25 19:04 | Emergency (ER) | payer SELFPAY ==
[2022-01-25 19:13] VITALS: PULSE 87; RESP 26; TEMP 36.4; O2SAT 97; BMI 32.6
--- NOTE | 2022-01-25 19:22 | XRR_ITS ---
PROCEDURE INFORMATION: Exam: XR Chest Exam date and time: 01/25/2022 7:53 PM Age: 31 years old Clinical indication: Dyspnea TECHNIQUE: Imaging protocol: XR of the chest. Views: 1 view. COMPARISON: CR Chest 1 [place] [id number] 01/29/2018 7:44 PM FINDINGS: Lungs: Unremarkable. No consolidation. Pleural spaces: Unremarkable. No pleural effusion. No pneumothorax. Heart/Mediastinum: Unremarkable. No cardiomegaly. Bones/joints: Unremarkable. XR/XR chest 1V portable [id number] IMPRESSION: No acute findings.
--- NOTE | 2022-01-25 19:24 | W.ED.GENADLT ---
HPI - General Adult General: Chief complaint: Shortness of Breath/Dyspnea Stated complaint: SOB, N/V/D Time Seen by Provider: 01/25/22 19:22 History of Present Illness: Patient is a 31-year-old female with history of asthma who presents to the emergency room with dyspnea and cough for last 3 days. Patient tells me that she has been out of her albuterol inhaler for the last 3 days and has had worsening cough. Patient had recent COVID and flu testing that was negative. Patient denies any fever, chest pain, abdominal complaints, nausea/vomiting, diarrhea, melena hematochezia. Patient denies any new rash. Patient denies any sick contact at home. Onset:3 days ago Duration:3 days Location:home Severity:mild/moderate Associated symptoms: Reports dyspnea; Deny chest pain, nausea, rash, palpitations or vomiting Review of Systems Const: Denies: fever(s) or chills Eyes: Denies: change in vision ENMT: Denies: mouth pain Card: Denies: chest pain or palpitations Resp: Reports: dyspnea; Denies: non-productive cough GI: Denies: abdominal pain, nausea, vomiting or diarrhea : Denies: dysuria Musc: Denies: extremity pain Skin/Breast: Denies: rash or new lesions Neuro: Denies: weakness in extremities Psych: Reports: other (Normal mood) Balta/Lymph: Denies: easy bruising PFS ED PFSH: Medical History (Updated 01/25/22 @ 20:57 by Vijay Storey MD) Asthma Social History Smoking and tobacco status: current every day smoker Physical Exam Const: COMMON NORMALS: alert HENMT: COMMON NORMALS: atraumatic HEAD & SCALP: atraumatic MOUTH: moist mucous membranes not abnormal Eye: COMMON NORMALS: EOMs intact bilaterally and conjunctivae normal CONJUNCTIVA: Yes conjunctivae normal Neck/C-Spine: COMMON NORMALS: full ROM and supple Resp: COMMON NORMALS: normal respiratory effort OTHER: +mild expiratory wheezes b/l Cardio: COMMON NORMALS: regular rate RATE: regular rate GI: COMMON NORMALS: Soft to palpation and non-tender PALPATION: Yes Soft to palpation Extremity: COMMON NORMALS: full ROM Neuro: SENSORIUM/ORIENTATION: Yes alert MOTOR EXAM: No Abnormal motor strength present and Other motor observations present (no focal motor deficits) Psych: COMMON NORMALS: speech normal SPEECH: Yes normal speech MOOD & AFFECT: Yes euthymic mood Course Vital Signs: Vital signs: Vital Signs Temperature 97.5 F L 01/25/22 19:13 Pulse Rate 83 01/25/22 20:21 Respiratory Rate 17 01/25/22 20:21 Pulse Oximetry 100 01/25/22 20:21 MDM - General Adult Medical Decision Making 31-year-old female with a history of asthma out of medication presenting to emergency room with dyspnea and cough. On exam, patient had mild wheezing bilaterally. X-ray chest not showing signs of focal finding. Patient has a negative flu and Covid test from 2 days ago. Repeat flu and Covid pending. Patient is able to tolerate p.o. without difficulty. Patient is has an O2 saturation greater than 95% observed in the emergency room. Patient received DuoNeb with significant improvement in symptoms of wheezing and dyspnea. Rx albuterol inhaler for wheezing Disposition: Discharge. Patient counseled regarding diagnostic impression, treatment plan. Patient given ED strict return precautions to return for continuation, worsening, or development of new symptoms. Instructed to f/u w/ PCP regarding symptoms today. Patient verbalized understanding. Lab Data Radiology Impressions Chest X-Ray 01/25/22 19:22 IMPRESSION: No acute findings. Imaging Data Other Imaging: Radiologist's impression: [address] [address] XRay Report Signed Patient: Stacy Graham Unit #: [id number] : 1990 Age/Sex: 31 / F ADM Date: 01/25/22 Loc: ER Room/Bed: Attending Dr: Ordering Provider/Ordering MD: Vijay Storey MD Date of Service: 01/25/22 Procedure(s): XR chest 1V portable [id number] Accession Number(s): [id number] Report Number: [id number] PROCEDURE INFORMATION: Exam: XR Chest Exam date and time: 01/25/2022 7:53 PM Age: 31 years old Clinical indication: Dyspnea TECHNIQUE: Imaging protocol: XR of the chest. Views: 1 view. COMPARISON: CR Chest 1 [place] [id number] 01/29/2018 7:44 PM FINDINGS: Lungs: Unremarkable. No consolidation. Pleural spaces: Unremarkable. No pleural effusion. No pneumothorax. Heart/Mediastinum: Unremarkable. No cardiomegaly. Bones/joints: Unremarkable. XR/XR chest 1V portable [id number] IMPRESSION: No acute findings. ? Dictated By: Von Aceves MD Signed By: Von Aceves MD Signed Date/Time: 01/25/222048 DD/ 52 Discharge Plan Discharge Patient Disposition: Home Clinical Impression: Dyspnea, Cough Condition: Stable Prescriptions: New albuterol sulfate 90 mcg/actuation HFA aerosol inhaler 2 inh inhalation Q4H PRN (Reason: shortness of breath or wheezing) 5 Days Qty: 6.7 0RF Discharge Orders: Discharge ED (Routine); Ordered 01/25/22 Ordered By: Vijay Storey Discharge Diet: Advance as tolerated Discharge Activity: Increase activity as tolerated Patient Instructions: Dyspnea (ED) Activity Restrictions/Additional Instructions: Come back to the emergency room if your symptoms worsen, have any shortness of breath, fever/chills, dehydration, inability tolerate food or drinks, any difficulty breathing, or any new or concerning complaints. Stand Alone Forms: Work/School Release Coding Level of Care Code ED Roll Or Tape Edge Machine Operator for Pilar Fwd Exam Comprehensive
[2022-01-25] MEDS: acetaminophen 500 mg Tablet 1000 MG PO (19:44)
[2022-01-25 20:00] VITALS: PULSE 74; RESP 16; O2SAT 100
[2022-01-25] MEDS: ipratropium-albuterol 3 mL Neb INHALATION ×3 (20:00→20:21)
[2022-01-25 20:11] VITALS: PULSE 82; RESP 17; O2SAT 100
[2022-01-25 20:21] VITALS: PULSE 83; RESP 17; O2SAT 100
[2022-01-25 21:49] VITALS: BP 142/83; PULSE 86; RESP 20; O2SAT 97
[2022-01-25 21:49] LABS: Adenovirus Not Detected (NOT DETECT); Chlamydia Pneumoniae Not Detected (NOT DETECT); Coronavirus 229E,HKU1,NL63,OC4 Detected (NOT DETECT); Human Metapneumovirus Not Detected (NOT DETECT); Human Rhinovirus/Enterovirus Not Detected (NOT DETECT); Influenza A Not Detected (NOT DETECT); Influenza A H1 Not Detected (NOT DETECT); Influenza A H1-2009 Not Detected (NOT DETECT); Influenza A H3 Not Detected (NOT DETECT); Influenza B Not Detected (NOT DETECT); Mycoplasma Pneumoniae Not Detected (NOT DETECT); Parainfluenza Virus Type 1 Not Detected (NOT DETECT); Parainfluenza Virus Type 2 Not Detected (NOT DETECT); Parainfluenza Virus Type 3 Not Detected (NOT DETECT); Parainfluenza Virus Type 4 Not Detected (NOT DETECT); Respiratory Syncytial Virus A Not Detected (NOT DETECT); Respiratory Syncytial Virus B Not Detected (NOT DETECT); SARS-COV-2 Not Detected (NOT DETECT)
[2022-01-26 12:01] LABS: Results from Genmark
== END 2022-01-25 21:50 | disposition home or self-care (01) ==
PROVIDERS: Emergency Provider Emergency Medicine
DX: R06.00 Dyspnea, unspecified (principal); R05.9 Cough, unspecified; F17.210 Nicotine dependence, cigarettes, uncomplicated; Z20.822 Contact with and (suspected) exposure to COVID-19
CPT/HCPCS: 71045; 87631; 87635; 94640; 99284

== ENCOUNTER 2022-07-13 10:43 | Emergency (ER) | payer SELFPAY ==
[2022-07-13 10:48] VITALS: BP 128/89; PULSE 90; RESP 14; TEMP 36.6; O2SAT 98; BMI 28.1
--- NOTE | 2022-07-13 11:29 | XR_ITS ---
WS: [id number] PORTABLE CHEST HISTORY: cough and fevers COMPARISON: 01/25/2022 Lungs are clear and well expanded. No pleural effusion or pneumothorax. Cardiac size: Normal. Mediastinum/Aorta: Normal mediastinum. No osseous abnormality seen. XR/XR chest 1V portable [id number] IMPRESSION: Unremarkable portable chest.
--- NOTE | 2022-07-13 11:33 | W.ED.NAVMDI ---
HPI - Nausea/Vomiting/Diarrhea General: Chief complaint: Nausea/Vomiting/Diarrhea Stated complaint: body aches, headaches, cough Time Seen by Provider: 07/13/22 11:20 History of Present Illness: Patient is a 32-year-old female comes to the ED with upper respiratory symptoms. Symptoms started approximately 4 days ago. She endorses having dry cough, nasal drainage and congestion, sore throat, body aches, chills, fever and nausea and vomiting. Patient also endorses having some diarrhea that started today. Denies any chest pain or shortness of breath. Denies any known sick contacts. Associated nausea: Yes Associated symtoms: Reports nausea; Denies change in vision, chest pain, dysuria, fatigue, headache(s) or palpitations Review of Systems Const: Reports: fever(s), chills and body aches; Denies: fatigue Eyes: Denies: change in vision or eye discomfort ENMT: Reports: throat pain, nasal discharge and nasal congestion; Denies: odynophagia Card: Denies: chest pain, palpitations, edema, swelling of feet/ankles, dyspnea on exertion or orthopnea Resp: Denies: dyspnea, productive cough or non-productive cough GI: Reports: nausea, vomiting and diarrhea; Denies: abdominal pain, constipation or hematochezia : Denies: flank pain, dysuria or hematuria Musc: Denies: neck pain, back pain or extremity swelling Skin/Breast: Denies: rash or new lesions Neuro: Denies: headache(s), numbness in extremities or weakness in extremities PFS ED PFSH: Medical History Asthma Surgical History No pertinent past surgical history Social History Smoking and tobacco status: current every day smoker Physical Exam Const: COMMON NORMALS: no acute distress, patient oriented x3, healthy appearing and alert GENERAL APPEARANCE: cooperative HENMT: COMMON NORMALS: normocephalic HEAD & SCALP: normocephalic MOUTH: Normal oral and palatal mucosa present THROAT: posterior oropharynx normal and uvula midline Neck/C-Spine: COMMON NORMALS: supple GENERAL: Yes normal visual inspection Resp: COMMON NORMALS: normal respiratory effort, No retractions, No use of accessory muscles and clear to auscultation bilaterally AUSCULTATION: clear to auscultation bilaterally Cardio: COMMON NORMALS: regular rate, regular rhythm, S1 normal heart sound present, S2 normal heart sound present, No gallops present (Cardio), No clicks present (Cardio), No murmurs present (Cardio) and Peripheral pulses 2+ throughout RATE: regular rate RHYTHM: regular rhythm HEART SOUNDS: S1 normal heart sound present and S2 normal heart sound present PERIPHERAL PULSES: Peripheral pulses 2+ throughout GI: COMMON NORMALS: Normal to inspection, nondistended, normoactive bowel sounds present, Soft to palpation, non-tender and no masses PALPATION: Yes Soft to palpation : COMMON NORMALS: Yes no CVA tenderness BLADDER/KIDNEY EXAM: Yes no CVA tenderness Back/Pelvis: COMMON NORMALS: no CVA tenderness Extremity: COMMON NORMALS: normal to inspection Neuro: COMMON NORMALS: patient oriented x3 SENSORIUM/ORIENTATION: Yes alert GAIT: Yes Normal gait present Skin: GENERAL SKIN EXAM: dry skin Course Vital Signs: Vital signs: Vital Signs Temperature 97.8 F 07/13/22 10:48 Pulse Rate 78 07/13/22 13:21 Respiratory Rate 14 07/13/22 13:21 Blood Pressure 148/78 07/13/22 13:21 Pulse Oximetry 98 07/13/22 13:21 Oxygen Delivery Me thod 07/13/22 10:48 MDM - Nausea/Vomiting/Diarrhea Medical Decision Making Patient is a 32-year-old female comes to the ED with upper respiratory symptoms. Vitals are stable. Patient appears nontoxic in no acute distress or pain. Exam is benign. Chest x-ray shows no acute findings. COVID and influenza test are negative. Strep was negative. Patient did have a positive Entero/rhinovirus. Patient was given a dose of Zofran here in the ED to help with nausea. She was diagnosed with viral syndrome. She was stable for discharge home and sent with a prescription for Tessalon Perles, prednisone and Zofran. Told to follow-up with PCP in the next week for reevaluation. Return ED precautions given. Patient restricted with plan. Lab Data I reviewed the patient's lab results. Radiology Impressions Chest X-Ray 07/13/22 11:29 IMPRESSION: Unremarkable portable chest. Laboratory Results Nasal Influ A H1 2009 PCR Not detected (NOT DETECT) 07/13/22 11:48 Coronavirus 229E (PCR) Not detected (NOT DETECT) 07/13/22 11:48 Human Metapneumovir PCR Not detected (NOT DETECT) 07/13/22 14:06 Influenza A (H1) PCR Not detected (NOT DETECT) 07/13/22 11:48 Influenza A (H3) PCR Not detected (NOT DETECT) 07/13/22 11:48 Influenza Type A (PCR) Not detected (NOT DETECT) 07/13/22 11:48 Influenza Type B (PCR) Not detected (NOT DETECT) 07/13/22 11:48 Entero/Rhino (PCR) Detected (NOT DETECT) A 07/13/22 14:06 SARS-CoV-2 (PCR) Not detected (NOT DETECT) 07/13/22 11:48 Group A Strep Rapid Negative (Negative) 07/13/22 11:48 Discharge Plan Discharge Patient Disposition: Home Clinical Impression: Viral syndrome Condition: Stable Prescriptions: New ondansetron 4 mg tablet,disintegrating 4 mg PO Q8H PRN (Reason: nausea and vomiting) Qty: 15 0RF benzonatate 100 mg capsule 100 mg PO Q6H PRN (Reason: cough) Qty: 30 0RF prednisone 20 mg tablet 20 mg PO BID 5 Days Qty: 10 0RF Discharge Orders: Discharge ED (Routine); Ordered 07/13/22 Ordered By: Ahmet Brewer Discharge Diet: Regular Discharge Activity: Increase activity as tolerated Patient Instructions: Viral Syndrome (ED) Activity Restrictions/Additional Instructions: Follow-up with medical provider as directed in the next 7 to 10 days for reevaluation. COVID test is pending and results should be back within the next 1 to 2 hours, so you can call [facility] later today to find out test results. Take medications as prescribed. Drink plenty fluids and stay hydrated. Return to the ER or your medical provider if condition worsens. Please read and understand discharge instructions. Thank you for choosing [facility] for your healthcare needs today. Please realize this is an emergency room and that we are providing you with a medical screening exam and this may not be complete and all inclusive of all the testing and or work up that you may need to determine your ailment or severity of your illness. It is very important that you follow up as instructed or that you return to the Emergency Department should you have concerns or if your condition changes or worsens in any way. Stand Alone Forms: Work/School Release Coding Level of Care Code ED Outside Food Server for [employer]ilar Fwd Exam Comprehensive
[2022-07-13] MEDS: ondansetron 2 mg/ML SDV 2 mL 4 MG IM (11:49)
[2022-07-13 12:22] LABS: Rapid Strep A Test Negative (Negative)
[2022-07-13 13:21] VITALS: BP 148/78; PULSE 78; RESP 14; O2SAT 98
[2022-07-13 14:00] LABS: Adenovirus Not Detected (NOT DETECT); Chlamydia Pneumoniae Not Detected (NOT DETECT); Coronavirus 229E,HKU1,NL63,OC4 Not Detected (NOT DETECT); Human Metapneumovirus Not Detected (NOT DETECT); Human Rhinovirus/Enterovirus Detected (NOT DETECT); Influenza A Not Detected (NOT DETECT); Influenza A H1 Not Detected (NOT DETECT); Influenza A H1-2009 Not Detected (NOT DETECT); Influenza A H3 Not Detected (NOT DETECT); Influenza B Not Detected (NOT DETECT); Mycoplasma Pneumoniae Not Detected (NOT DETECT); Parainfluenza Virus Type 1 Not Detected (NOT DETECT); Parainfluenza Virus Type 2 Not Detected (NOT DETECT); Parainfluenza Virus Type 3 Not Detected (NOT DETECT); Parainfluenza Virus Type 4 Not Detected (NOT DETECT); Respiratory Syncytial Virus A Not Detected (NOT DETECT); Respiratory Syncytial Virus B Not Detected (NOT DETECT); SARS-COV-2 Not Detected (NOT DETECT)
[2022-07-13 14:06] LABS: Human Metapneumovirus Not Detected (NOT DETECT); Human Rhinovirus/Enterovirus Detected (NOT DETECT); Results from Genmark
[2022-07-13 18:27] LABS: Results from Genmark
== END 2022-07-13 13:22 | disposition home or self-care (01) ==
PROVIDERS: Emergency Provider Physician Assistant
DX: B34.9 Viral infection, unspecified (principal); F17.210 Nicotine dependence, cigarettes, uncomplicated; Z20.822 Contact with and (suspected) exposure to COVID-19
CPT/HCPCS: 71045; 87081; 87631; 87635; 87801; 87880; 96372; 99284; J2405

== ENCOUNTER 2023-03-15 06:39 | Emergency (ER) | payer SELFPAY ==
[2023-03-15 06:46] VITALS: BP 138/79; PULSE 78; RESP 18; TEMP 36.6; O2SAT 99; BMI 30.4
[2023-03-15 06:58] VITALS: BP 138/79; PULSE 80; RESP 18; O2SAT 98
--- NOTE | 2023-03-15 07:05 | ED_ITS ---
HPI - Female Genitourinary General: Chief complaint: Urogenital-Female Stated complaint: female trouble Time Seen by Provider: 03/15/23 06:53 Source: patient Mode of arrival: ambulatory History of Present Illness: 33-year-old female presents to the emergency room complaining of intermittent vaginal and irregular bleeding. This been a longstanding issue for her going back to her early teens. They tried to put her on control however she had side effects from it and has not been on anything. Recently her periods been i rregular exacerbated by intercourse. After intercourse she will have spotty bleeding. She also thinks she may have had some blood in her urine minimal discomfort with urination frequency. No fever sweats chills no vaginal discharge. MD elicited complaint: vaginal bleeding Onset (ago): day(s) Severity: moderate Quality of pain: cramping Vaginal bleeding: moderate Exacerbating factors: intercourse Associated symptoms: Reports vaginal bleeding; Deny abdominal pain, short of breath, fevers/chills, headache(s), nausea, rash, seizures, syncope, vaginal discharge, weakness or other Treatment prior to arrival: none Date of Last Menstrual Period: 03/01/23 Review of Systems Const: Denies: fever(s), chills, body aches, change in appetite, fatigue or malaise ENMT: Denies: throat pain, ear or mastoid pain, nasal discharge or nasal congestion Card: Denies: chest pain or syncope Resp: Denies: dyspnea, productive cough or non-productive cough GI: Denies: abdominal pain or nausea : Reports: hematuria (Potentially) and vaginal bleeding; Denies: dysuria, urinary frequency, urinary urgency or vaginal discharge Skin/Breast: Denies: rash or pruritus Neuro: Denies: headache(s) PFS ED PFSH: Medical History Asthma Surgical History No pertinent past surgical history Social History Smoking and tobacco status: current every day smoker Female Reproductive History: Date of last menstrual period: 03/01/23 Physical Exam Const: GENERAL APPEARANCE: cooperative and comfortable ORIENTATION/CONSCIOUSNESS: Yes awake, Yes oriented to person, Yes oriented to place and Yes oriented to time HENMT: COMMON NORMALS: normocephalic, atraumatic and hearing grossly normal bilaterally HEAD & SCALP: normocephalic and atraumatic Resp: COMMON NORMALS: normal respiratory effort, No retractions, No use of accessory muscles and clear to auscultation bilaterally AUSCULTATION: clear to auscultation bilaterally Cardio: COMMON NORMALS: regular rate, regular rhythm and No murmurs present (Cardio) RATE: regular rate RHYTHM: regular rhythm GI: COMMON NORMALS: Soft to palpation and No hepatosplenomegaly present AUSCULTATION: Yes normoactive bowel sounds PALPATION: Yes Soft to palpation, No Tenderness to palpation present (GI), No Guarding due to palpation present (GI) and Yes No hepatosplenomegaly present : SPECULUM EXAM - VAGINA: Yes vaginal bleeding OB/EXTERNAL & SPECULUM: vaginal bleeding Extremity: COMMON NORMALS: normal to inspection, capillary refill normal, no clubbing, cyanosis or edema, no calf tenderness and no pedal edema Neuro: SENSORIUM/ORIENTATION: Yes oriented to person, Yes oriented to place and Yes oriented to time Skin: COMMON NORMALS: no rashes or lesions noted GENERAL SKIN EXAM: no rashes or lesions noted Course Vital Signs: Vital signs: Vital Signs Temperature 97.9 F 03/15/23 06:46 Pulse Rate 76 03/15/23 10:34 Respiratory Rate 18 03/15/23 10:34 Blood Pressure 125/83 03/15/23 10:34 Pulse Oximetry 98 03/15/23 10:34 Oxygen Delivery Me thod Room Air 03/15/23 10:27 MDM - Female Medical Decision Making Labs and CT reviewed. Patient has hematuria but CT did not show any nephrolithiasis. She does have some ovarian cysts described as multiple small cysts or follicles. We will treat her for a cystitis. The UA was a cath UA. Urine has been cultured. We will set her up for a PCP and have her follow-up with repeat pelvic ultrasound in 1 to 2 months. Medical Records I reviewed the patient's medical records. Lab Data I reviewed the patient's lab results. 03/15/23 07:14 03/15/23 07:14 Radiology Impressions Abdomen/Pelvis CT 03/15/23 09:29 IMPRESSION: 1. No renal obstruction or calcification. 2. Normal appendix. 3. Ovaries appear mildly prominent with multiple small cysts or follicles. 4. No free fluid. Laboratory Results WBC 6.1 10^3/uL (4.0-10.0) 03/15/23 07:14 RBC 4.16 10^6/uL (4.1-5.3) 03/15/23 07:14 Hgb 12.4 g/dL (11.5-15.3) 03/15/23 07:14 Hct 38.5 % (37.0-47.0) 03/15/23 07:14 MCV 92.5 fl (81-99) 03/15/23 07:14 MCH 29.8 pg (28.0-34.0) 03/15/23 07:14 MCHC 32.2 g/dL (30.0-36.0) 03/15/23 07:14 RDW 12.3 % (12.1-15.1) 03/15/23 07:14 Plt Count 230 10^3/cmm (130-400) 03/15/23 07:14 MPV 10.0 fL (7.4-10.4) 03/15/23 07:14 Neut % (Auto) 59.9 % 03/15/23 07:14 Lymph % (Auto) 31.8 % 03/15/23 07:14 Bureau % (Auto) 5.9 % 03/15/23 07:14 Eos % (Auto) 1.3 % 03/15/23 07:14 Baso % (Auto) 0.8 % 03/15/23 07:14 Neut # (Auto) 3.63 10^3/uL (1.8-7.7) 03/15/23 07:14 Lymph # (Auto) 1.9 10^3/uL (0.8-4.8) 03/15/23 07:14 Bureau # (Auto) 0.4 10^3/uL (0.2-0.9) 03/15/23 07:14 Eos # (Auto) 0.1 10^3/uL (0.0-0.8) 03/15/23 07:14 Baso # (Auto) 0.1 10^3/uL (0.0-0.1) 03/15/23 07:14 Nucleated RBC % (auto) 0 % 03/15/23 07:14 Nucleated RBCs # 0.0 /100WBC 03/15/23 07:14 Sodium 139 mmol/L (136-145) 03/15/23 07:14 Potassium 4.3 mmol/L (3.5-5.1) 03/15/23 07:14 Chloride 105 mmol/L (98-107) 03/15/23 07:14 Carbon Dioxide 25 mmol/L (22-29) 03/15/23 07:14 Anion Gap 13.3 (5-19) 03/15/23 07:14 BUN 12 mg/dL (6-20) 03/15/23 07:14 Creatinine 0.7 mg/dL (0.5-0.9) 03/15/23 07:14 GFR Calculation 95.8 mL/min (90-130) 03/15/23 07:14 Glucose 106 mg/dL (65-115) 03/15/23 07:14 Calculated Osmolality 288 mOsm/kg (285-295) 03/15/23 07:14 Calcium 8.6 mg/dL (8.5-10.5) 03/15/23 07:14 Total Bilirubin 0.3 mg/dL (0.15-1.2) 03/15/23 07:14 AST 27 U/L (0-32) 03/15/23 07:14 ALT 18 U/L (0-33) 03/15/23 07:14 Alkaline Phosphatase 67 U/L (35-105) 03/15/23 07:14 Total Protein 7.0 g/dL (6.6-8.7) 03/15/23 07:14 Albumin 4.1 g/dL (3.5-5.2) 03/15/23 07:14 Globulin 2.9 g/dL (1.3-4.6) 03/15/23 07:14 HCG, Qual Negative (Negative) 03/15/23 07:14 Urine Color Red (Yellow) 03/15/23 07:13 Urine Appearance Cloudy (CLEAR) A 03/15/23 07:13 Urine pH 7 (5-7) 03/15/23 07:13 Ur Specific [place] 1.010 (1.005-1.030) 03/15/23 07:13 Urine Protein 1+ (Negative) H 03/15/23 07:13 Urine Glucose (UA) Norm (Normal) 03/15/23 07:13 Urine Ketones Negative (Negative) 03/15/23 07:13 Urine Blood 3+ (Negative) H 03/15/23 07:13 Urine Nitrate Negative (Negative) 03/15/23 07:13 Urine Bilirubin Neg (Negative) 03/15/23 07:13 Urine Urobilinogen Norm mg/dL (Negative) 03/15/23 07:13 Ur Leukocyte Esterase 1+ (Negative) H 03/15/23 07:13 Urine RBC Too numerous to cnt /hpf (0-2) H 03/15/23 07:13 Urine WBC 5-10 /hpf (0-5) H 03/15/23 07:13 Ur Squamous Epith Cells 5-10 /hpf (0-5) H 03/15/23 07:13 Amorphous Sediment Not Reportable 03/15/23 07:13 Urine Bacteria 1+ /hpf (NONE) H 03/15/23 07:13 Discharge Plan Discharge Patient Disposition: Home Clinical Impression: Urinary tract infection, Ovarian cyst Condition: Stable Prescriptions: New Macrobid 100 mg capsule 100 mg PO BID 7 Days Qty: 14 0RF Rx Instructions: must administer with a meal/food No Action ibuprofen 200 mg Tablet 800 mg PO Q8H PRN (Reason: Pain) Discharge Orders: Discharge ED (Routine); Ordered 03/15/23 Ordered By: Jonathan Cronin Discharge Diet: Usual diet Patient Instructions: Opioid Safety, Pain Management Activity Restrictions/Additional Instructions: You are found to have a mild cystitis and some nonspecific ovarian cyst. You have a prescription for antibiotics in case consultant will make arrangements for your primary care doctor to follow-up on the ovarian cyst. Coding Level of Care Code ED Director Learning Services for Pilar Basilio
[2023-03-15 07:20] LABS: Basophils # 0.1 10^3/uL (0.0-0.1); Basophils % 0.8 %; Eosinophils # 0.1 10^3/uL (0.0-0.8); Eosinophils % 1.3 %; Hematocrit 38.5 % (37.0-47.0); Hemoglobin 12.4 g/dL (11.5-15.3); Lymphocytes # 1.9 10^3/uL (0.8-4.8); Lymphocytes % 31.8 %; Mean Corpuscular HGB Conc 32.2 g/dL (30.0-36.0); Mean Corpuscular Hemoglobin 29.8 pg (28.0-34.0); Mean Corpuscular Volume 92.5 fl (81-99); Monocytes # 0.4 10^3/uL (0.2-0.9); Monocytes % 5.9 %; Neutrophils # 3.63 10^3/uL (1.8-7.7); Neutrophils % 59.9 %; Nucleated Red Blood Cells % 0 %; Platelet Count 230 10^3/cmm (130-400); Red Blood Count 4.16 10^6/uL (4.1-5.3); Red Cell Distribution Width 12.3 % (12.1-15.1); White Blood Count 6.1 10^3/uL (4.0-10.0)
[2023-03-15] MEDS: ketorolac 30 mg/mL INJ 60 MG IM (07:27)
[2023-03-15 07:36] LABS: HCG, Serum Qual Negative (Negative)
[2023-03-15 07:39] LABS: Alanine Aminotransferase 18 U/L (0-33); Albumin Level 4.1 g/dL (3.5-5.2); Alkaline Phosphatase 67 U/L (35-105); Anion Gap 13.3 (5-19); Aspartate Amino Transferase 27 U/L (0-32); Blood Urea Nitrogen 12 mg/dL (6-20); Calcium 8.6 mg/dL (8.5-10.5); Carbon Dioxide 25 mmol/L (22-29); Chloride 105 mmol/L (98-107); Globulin 2.9 g/dL (1.3-4.6); Glomerular Filtration Rate 95.8 mL/min (90-130); Glucose 106 mg/dL (65-115); Osmolality Calculated 288 mOsm/kg (285-295); Potassium 4.3 mmol/L (3.5-5.1); Sodium 139 mmol/L (136-145); Total Bilirubin 0.3 mg/dL (0.15-1.2)
[2023-03-15 08:48] VITALS: BP 119/88; PULSE 74; RESP 16; O2SAT 98
[2023-03-15 09:08] VITALS: BP 125/73; PULSE 63; RESP 16; O2SAT 98
[2023-03-15 09:13] LABS: Urine Appearance Cloudy (CLEAR); Urine Color Red (Yellow)
[2023-03-15 09:14] LABS: Add Urine Microscopic? YES; Bilirubin Urine Neg (Negative); Blood Urine 3+ (Negative); Glucose Urine UA Norm (Normal); Ketones Urine Negative (Negative); Leukocyte Esterase Urine 1+ (Negative); Nitrate Urine Negative (Negative); Protein Urine 1+ (Negative); Urobilinogen Urine Norm (Negative); pH Urine 7 (5-7)
[2023-03-15 09:15] LABS: Add Urine Culture? Yes; Bacteria Urine 1+ /hpf; RBC Urine TOO NUMEROUS TO CNT /hpf (0-2)
--- NOTE | 2023-03-15 09:29 | CT_ITS ---
WS: [id number] CT ABDOMEN AND PELVIS NONCONTRAST HISTORY: flank pain TECHNIQUE: Imaging performed through the abdomen and pelvis. Coronal and sagittal reformats are submi tted. All CT scans at [facility] use at least one of these dose optimization techniques: auto mated exposure control; mA and/or kV adjustment per patient size (includes targeted exams where dose is matched to clinical indication); or iterative reconstruction. DLP: 731.42 mGy.cm COMPARISON: Hematuria and flank pain. Lower thorax: Lung bases are clear. Visualized heart is normal. No hiatal hernia. Liver: Normal size liver. No mass or bile duct dilatation. Gallbladder: Normal gallbladder. No pericholecystic fluid or cholelithiasis. No gallbladder wall thic kening. Pancreas: Normal size and attenuation. Normal pancreatic duct. No pancreatitis or mass. Spleen: Normal. Adrenal glands: Normal. No mass. Right kidney: Normal size kidney with no mass or hydronephrosis. Left kidney: Normal size kidney with no mass or hydronephrosis. Aorta: Normal abdominal aorta, no aneurysm or atherosclerosis. No free fluid, intraperitoneal air or significant lymphadenopathy. GI tract: Normal noncontrast imaging of the stomach, small bowel and colon. No obstruction or wall th ickening. Normal appendix. Abdominal wall: Small umbilical hernia contains fat only. Pelvis: No free fluid or adenopathy. Uterus is midline. Both ovaries appear very slightly enlarged wi th small cysts. No significant inflammation and no free fluid. There is a tiny amount of air near the endocervical region which is nonspecific. May be due to recent tampon insertion or manipulation. Osseous structures: Moderate degenerative disc disease at L5-S1. Mild RIGHT foraminal narrowing at L5 -S1. RIGHT sacral bone island. CT/CT kidney stone [id number] IMPRESSION: 1. No renal obstruction or calcification. 2. Normal appendix. 3. Ovaries appear mildly prominent with multiple small cysts or follicles. 4. No free fluid.
[2023-03-15 10:27] VITALS: BP 125/83; PULSE 76; RESP 18; O2SAT 98
[2023-03-15 10:34] VITALS: BP 125/83; PULSE 76; RESP 18; O2SAT 98
--- NOTE | 2023-03-16 13:11 | DCPLANNER ---
arts administrator or manager had message to speak with patient about getting established with a primary care physician. arts administrator or manager called patient - no answer at this time.
== END 2023-03-15 10:35 | disposition home or self-care (01) ==
PROVIDERS: Emergency Provider Family Medicine
DX: N39.0 Urinary tract infection, site not specified (principal); N83.202 Unspecified ovarian cyst, left side; N83.201 Unspecified ovarian cyst, right side; F17.210 Nicotine dependence, cigarettes, uncomplicated
CPT/HCPCS: 36415; 51701; 74176; 80053; 81001; 84703; 85025; 87086; 96372; 99284; J1885

== ENCOUNTER 2023-06-01 11:29 | Emergency (ER) | payer SELFPAY ==
[2023-06-01 11:39] VITALS: BP 119/82; PULSE 83; RESP 14; TEMP 36.6; O2SAT 97; BMI 31.7
[2023-06-01 11:58] VITALS: BP 129/74; PULSE 73; RESP 17; O2SAT 96
--- NOTE | 2023-06-01 12:08 | CT_ITS ---
WS: [id number] CT ABDOMEN AND PELVIS WITH CONTRAST HISTORY: RLQ abdominal pain TECHNIQUE: Imaging performed of the abdomen and pelvis with IV contrast. Single phase imaging of the abdomen. Coronal and sagittal reformats are submitted. All CT scans at [facility] use at [address] one of these dose optimization techniques: automated exposure control; mA and/or kV adjustment per patient size (includes targeted exams where dose is matched to clinical indication); or iterative re construction. IV CONTRAST: Omnipaque 350; 100 mL IV. Oral contrast: No DLP: 812.03 mGy.cm COMPARISON: 03/15/2023 Lower thorax: Lung bases are clear. Heart is normal size. No hiatal hernia. Liver/biliary system: Normal size with no intrahepatic dilatation. Gallbladder: Normal. No gallstones or wall thickening. No pericholecystic fluid. Pancreas: Normal size pancreas and pancreatic duct. No adjacent inflammation. Spleen: Normal size spleen. No mass or infarct. Adrenal glands: Normal. Right kidney: Normal. Left kidney: Normal. Aorta: Normal. Lymphadenopathy: None. Free fluid: None. GI tract: Normal appearance of the stomach and small bowel. Normal appendix. No colon obstruction. Th ere are very few scattered sigmoid diverticula. No acute diverticulitis. Abdominal wall: Unremarkable abdominal wall. No hernia. Pelvis: No free fluid or adenopathy within the pelvis. Enhancing corpus luteal cyst LEFT ovary measur es 17 x 16 mm. Uterus is midline and normal size. Bones: Mild degenerative disc disease with osteophytosis at L5-S1. CT/CT abdomen pelvis w con* [id number] IMPRESSION: 1. Normal appendix. 2. LEFT ovarian corpus luteal cyst. 3. No renal obstruction.
--- NOTE | 2023-06-01 12:08 | W.ED.ABDPA2 ---
HPI - Abdominal Pain General: Chief Complaint: Abdominal Pain Stated Complaint: abd pain Time Seen by Provider: 06/01/23 11:48 Source: patient Mode of arrival: ambulatory Limitations: no limitations History of Present Illness: Patient is a 33-year-old female presents to ED today with complaint of right lower abdominal pain that initially started about a week ago. Patient states pain was minimal/tolerable for the first 4 days or so. She states she first attributed it to constipation/gas so began taking an [id number] bowel regimen. He states yesterday she did have productive bowel movements and her pain went away for the most part. She states she later was jumping on a trampoline and began noticing pain again that progressed into today thus prompting her ED visit. She states she feels nauseous but has not had any episodes of emesis. She has not been running fevers. She states she does have a history of ovarian cyst but feels this pain is different. Denies vaginal discharge. She states she is scheduled to start her menstrual cycle in a few days. MD elicited complaint: abdominal pain Pertinent past history: none Onset (ago): day(s) Pain Consistency: intermittent Location: RLQ Severity: moderate Quality: sharp Radiation: none Migration to: no migration Exacerbating factors: movement Relieving factors: nothing Associated Symptoms: Reports nausea; Denies change in bowel habits, chills, diarrhea, dysuria, fever(s), hematochezia, melena and vomiting Related Data: Patient : No Review of Systems Const: Denies: fever(s), chills, body aches, fatigue or malaise Card: Denies: chest pain Resp: Denies: dyspnea GI: Reports: abdominal pain and nausea; Denies: vomiting, diarrhea, change in bowel habits, hematochezia or melena : Denies: flank pain, difficulty voiding, dysuria, urinary frequency, urinary urgency or urinary hesitancy Musc: Denies: neck pain, back pain, extremity pain, extremity swelling, joint pain or joint swelling Skin/Breast: Denies: rash Neuro: Denies: headache(s), numbness in extremities, weakness in extremities, sensory changes or dizziness PFS ED PFSH: Medical History Asthma Surgical History No pertinent past surgical history Social History Smoking and tobacco status: current every day smoker Physical Exam Const: COMMON NORMALS: no acute distress, patient oriented x3, no limitations, healthy appearing, alert and well nourished GENERAL APPEARANCE: cooperative NUTRITIONAL APPEARANCE: overweight ORIENTATION/CONSCIOUSNESS: Yes awake, Yes oriented to person, Yes oriented to place and Yes oriented to time Eye: COMMON NORMALS: no scleral icterus Chest: COMMONS NORMALS: normal inspection of the chest and normal palpation of entire chest wall Resp: COMMON NORMALS: normal respiratory effort and clear to auscultation bilaterally AUSCULTATION: clear to auscultation bilaterally Cardio: COMMON NORMALS: regular rate and regular rhythm RATE: regular rate RHYTHM: regular rhythm GI: COMMON NORMALS: Normal to inspection, nondistended, normoactive bowel sounds present, Soft to palpation, No hepatosplenomegaly present and no masses INSPECTION: Yes normal to inspection AUSCULTATION: Yes normoactive bowel sounds PALPATION: Yes Soft to palpation, Yes Tenderness to palpation present (GI) (diffusely), Yes Guarding due to palpation present (GI) (RLQ), No Rigid due to palpation and Yes No hepatosplenomegaly present : COMMON NORMALS: Yes no CVA tenderness BLADDER/KIDNEY EXAM: Yes no CVA tenderness Back/Pelvis: COMMON NORMALS: no CVA tenderness Extremity: COMMON NORMALS: normal to inspection GENERAL: Yes normal exam except as noted Neuro: KIA COMA SCALE: document GCS findings Kia coma scale eye opening: Spontaneous Kia coma scale verbal response: Orientated [place] coma scale motor response: Obey commands [place] coma scale total score: 15 COMMON NORMALS: patient oriented x3 SENSORIUM/ORIENTATION: Yes alert, Yes oriented to person, Yes oriented to place and Yes oriented to time Skin: COMMON NORMALS: no rashes or lesions noted GENERAL SKIN EXAM: no rashes or lesions noted Course Vital Signs: Vital signs: Vital Signs Temperature 97.8 F 06/01/23 11:39 Pulse Rate 77 06/01/23 12:23 Respiratory Rate 16 06/01/23 12:23 Blood Pressure 128/83 06/01/23 12:23 Pulse Oximetry 99 06/01/23 12:23 Oxygen Delivery Me thod Room Air 06/01/23 12:23 MDM - Abdominal Pain Medical Decision Making Upon re-examination patient appears much improved. Her vital signs are normal. Blood work is unremarkable. Her UA is clear. CT scan showing no acute abnormalities. Possible still related to constipation. Patient is stable for discharge at this point with instructions to follow-up with PCP. Return to ED precautions given. Lab Data 06/01/23 11:54 06/01/23 11:54 Labs/Radiology: Radiology Impressions Abdomen/Pelvis CT 06/01/23 12:08 IMPRESSION: 1. Normal appendix. 2. LEFT ovarian corpus luteal cyst. 3. No renal obstruction. Laboratory Results WBC 7.9 10^3/uL (4.0-10.0) 06/01/23 11:54 RBC 4.14 10^6/uL (4.1-5.3) 06/01/23 11:54 Hgb 12.4 g/dL (11.5-15.3) 06/01/23 11:54 Hct 37.9 % (37.0-47.0) 06/01/23 11:54 MCV 91.5 fl (81-99) 06/01/23 11:54 MCH 30.0 pg (28.0-34.0) 06/01/23 11:54 MCHC 32.7 g/dL (30.0-36.0) 06/01/23 11:54 RDW 12.3 % (12.1-15.1) 06/01/23 11:54 Plt Count 273 10^3/cmm (130-400) 06/01/23 11:54 MPV 10.2 fL (7.4-10.4) 06/01/23 11:54 Neut % (Auto) 55.9 % 06/01/23 11:54 Lymph % (Auto) 35.1 % 06/01/23 11:54 [place] % (Auto) 7.0 % 06/01/23 11:54 Eos % (Auto) 0.9 % 06/01/23 11:54 Baso % (Auto) 0.8 % 06/01/23 11:54 Neut # (Auto) 4.43 10^3/uL (1.8-7.7) 06/01/23 11:54 Lymph # (Auto) 2.8 10^3/uL (0.8-4.8) 06/01/23 11:54 [place] # (Auto) 0.6 10^3/uL (0.2-0.9) 06/01/23 11:54 Eos # (Auto) 0.1 10^3/uL (0.0-0.8) 06/01/23 11:54 Baso # (Auto) 0.1 10^3/uL (0.0-0.1) 06/01/23 11:54 Nucleated RBC % (auto) 0 % 06/01/23 11:54 Nucleated RBCs # 0.0 /100WBC 06/01/23 11:54 Sodium 136 mmol/L (136-145) 06/01/23 11:54 Potassium 3.8 mmol/L (3.5-5.1) 06/01/23 11:54 Chloride 104 mmol/L (98-107) 06/01/23 11:54 Carbon Dioxide 22 mmol/L (22-29) 06/01/23 11:54 Anion Gap 13.8 (5-19) 06/01/23 11:54 BUN 13 mg/dL (6-20) 06/01/23 11:54 Creatinine 0.8 mg/dL (0.5-0.9) 06/01/23 11:54 GFR Calculation 82.1 mL/min (90-130) L 06/01/23 11:54 Glucose 85 mg/dL (65-115) 06/01/23 11:54 Calculated Osmolality 281 mOsm/kg (285-295) L 06/01/23 11:54 Calcium 9.1 mg/dL (8.5-10.5) 06/01/23 11:54 Total Bilirubin 0.2 mg/dL (0.15-1.2) 06/01/23 11:54 AST 14 U/L (0-32) 06/01/23 11:54 ALT 13 U/L (0-33) 06/01/23 11:54 Alkaline Phosphatase 69 U/L (35-105) 06/01/23 11:54 Total Protein 7.1 g/dL (6.6-8.7) 06/01/23 11:54 Albumin 4.0 g/dL (3.5-5.2) 06/01/23 11:54 Globulin 3.1 g/dL (1.3-4.6) 06/01/23 11:54 Lipase 26 U/L (13-60) 06/01/23 11:54 HCG, Qual Negative (Negative) 06/01/23 11:54 Urine Color Yellow (Yellow) 06/01/23 12:19 Urine Appearance Hazy (CLEAR) A 06/01/23 12:19 Urine pH 7 (5-7) 06/01/23 12:19 Ur Specific [place] 1.010 (1.005-1.030) 06/01/23 12:19 Urine Protein Neg (Negative) 06/01/23 12:19 Urine Glucose (UA) Norm (Normal) 06/01/23 12:19 Urine Ketones Negative (Negative) 06/01/23 12:19 Urine Blood Neg (Negative) 06/01/23 12:19 Urine Nitrate Negative (Negative) 06/01/23 12:19 Urine Bilirubin Neg (Negative) 06/01/23 12:19 Urine Urobilinogen Norm mg/dL (Negative) 06/01/23 12:19 Ur Leukocyte Esterase Negative (Negative) 06/01/23 12:19 Urine RBC 0-4 /hpf (0-2) H 06/01/23 12:19 Urine WBC 0-4 /hpf (0-5) H 06/01/23 12:19 Ur Squamous Epith Cells 0-4 /hpf (0-5) H 06/01/23 12:19 Amorphous Sediment 3+ /hpf 06/01/23 12:19 Urine Bacteria None /hpf (NONE) 06/01/23 12:19 Discharge Plan Discharge Patient Disposition: Home Clinical Impression: Abdominal pain Qualifiers: Abdominal location: right lower quadrant Qualified Code(s): R10.31 - Right lower quadrant pain Condition: Stable Prescriptions: No Action ibuprofen 200 mg Tablet 800 mg PO Q8H PRN (Reason: Pain) acetaminophen 325 mg Capsule 975 mg PO QID PRN (Reason: Pain) Discharge Orders: Discharge ED (Routine); Ordered 06/01/23 Ordered By: Genna Houser Patient Instructions: Abdominal Pain (ED) Stand Alone Forms: Work/School Release Coding Level of Care Code ED Chiropractic Practice Manager for Pilar Basilio
[2023-06-01 12:13] LABS: Basophils # 0.1 10^3/uL (0.0-0.1); Basophils % 0.8 %; Eosinophils # 0.1 10^3/uL (0.0-0.8); Eosinophils % 0.9 %; Hematocrit 37.9 % (37.0-47.0); Hemoglobin 12.4 g/dL (11.5-15.3); Lymphocytes # 2.8 10^3/uL (0.8-4.8); Lymphocytes % 35.1 %; Mean Corpuscular HGB Conc 32.7 g/dL (30.0-36.0); Mean Corpuscular Volume 91.5 fl (81-99); Mean Platelet Volume 10.2 fL (7.4-10.4); Monocytes # 0.6 10^3/uL (0.2-0.9); Neutrophils # 4.43 10^3/uL (1.8-7.7); Neutrophils % 55.9 %; Nucleated Red Blood Cells % 0 %; Platelet Count 273 10^3/cmm (130-400); Red Blood Count 4.14 10^6/uL (4.1-5.3); Red Cell Distribution Width 12.3 % (12.1-15.1); White Blood Count 7.9 10^3/uL (4.0-10.0)
[2023-06-01] MEDS: sodium chloride 0.9% 1,000 ML 999 ML IV (12:20)
[2023-06-01 12:22] LABS: HCG, Serum Qual Negative (Negative)
[2023-06-01] MEDS: ondansetron 2 mg/ML SDV 2 mL 4 MG IVP (12:22)
[2023-06-01] MEDS: morphine 4 mg/mL SDV 1 mL IVP (12:22)
[2023-06-01 12:23] VITALS: BP 128/83; PULSE 77; RESP 16; O2SAT 99
[2023-06-01 12:27] LABS: Alanine Aminotransferase 13 U/L (0-33); Alkaline Phosphatase 69 U/L (35-105); Anion Gap 13.8 (5-19); Aspartate Amino Transferase 14 U/L (0-32); Blood Urea Nitrogen 13 mg/dL (6-20); Calcium 9.1 mg/dL (8.5-10.5); Carbon Dioxide 22 mmol/L (22-29); Chloride 104 mmol/L (98-107); Globulin 3.1 g/dL (1.3-4.6); Glomerular Filtration Rate 82.1 mL/min (90-130); Glucose 85 mg/dL (65-115); Lipase 26 U/L (13-60); Osmolality Calculated 281 mOsm/kg (285-295); Potassium 3.8 mmol/L (3.5-5.1); Sodium 136 mmol/L (136-145); Total Bilirubin 0.2 mg/dL (0.15-1.2); Total Protein 7.1 g/dL (6.6-8.7)
--- NOTE | 2023-06-01 12:30 | PC.NURSE ---
PT MEDS PUSHED BY CHIKIS Lewis RN
[2023-06-01] MEDS: iohexol 350 mg/mL 500 mL Btl (per mL) IV (12:40)
[2023-06-01 12:46] LABS: Add Urine Microscopic? YES; Bilirubin Urine Neg (Negative); Blood Urine Neg (Negative); Glucose Urine UA Norm (Normal); Ketones Urine Negative (Negative); Leukocyte Esterase Urine Negative (Negative); Nitrate Urine Negative (Negative); Protein Urine Neg (Negative); Urine Appearance Hazy (CLEAR); Urine Color Yellow (Yellow); Urobilinogen Urine Norm (Negative); pH Urine 7 (5-7)
[2023-06-01 12:47] LABS: Add Urine Culture? No; Amorphous Sediment Urine 3+ /hpf; RBC Urine 0-4 /hpf (0-2); Squamous Epithelial Cell Urine 0-4 /hpf (0-5); WBC Urine 0-4 /hpf (0-5)
[2023-06-01 13:25] VITALS: BP 119/71; PULSE 64; RESP 18; O2SAT 99
== END 2023-06-01 13:26 | disposition home or self-care (01) ==
PROVIDERS: Emergency Provider Physician Assistant
DX: R10.31 Right lower quadrant pain (principal); N83.12 Corpus luteum cyst of left ovary; F17.210 Nicotine dependence, cigarettes, uncomplicated
CPT/HCPCS: 74177; 80053; 81001; 83690; 84703; 85025; 96374; 96375; 99285; J2270; J2405; J7030; Q9967

== ENCOUNTER 2023-07-09 06:53 | Emergency (ER) | payer SELFPAY ==
[2023-07-09 07:00] VITALS: BP 126/104; PULSE 83; RESP 22; TEMP 36.3; O2SAT 100; BMI 31.6
--- NOTE | 2023-07-09 07:08 | W.ED.BACK ---
HPI - Back Pain/Injury General: Chief Complaint: Back Pain/Injury Stated Complaint: abd pain Time Seen by Provider: 07/09/23 06:59 Source: patient Mode of arrival: ambulatory History of Present Illness: 33-year-old female who presents to the emergency room with complaints of back pain. This intermittently been bothering her for the last couple of weeks that she states she has been doing more lifting at work. 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 No fever sweats or chills no significant trauma recently. She denies any fecal incontinence urinary retention no saddle paresthesias. MD elicited complaint: back pain and back injury Pertinent past history: prior back pain Onset (ago): week(s) (2) Timing: constant Severity: severe Similar Symptoms Previously: Yes Quality: sharp Location: lumbar spine Radiation: left upper leg and left leg below the knee Exacerbating factors: none Relieving factors: none Associated symptoms: Deny abdominal pain, arthralgias, chills, difficulty walking, dysuria, fatigue, fecal incontinence, fever(s), hematuria, myalgias, nausea, numbness, syncope, tingling/numbness/burning, urinary frequency, urinary urgency, vomiting or weakness Work related injury: Yes Review of Systems Const: Denies: fever(s), chills or fatigue ENMT: Denies: throat pain, ear or mastoid pain, nasal discharge or nasal congestion Card: Denies: chest pain or syncope Resp: Denies: dyspnea, productive cough or non-productive cough GI: Reports: constipation; Denies: abdominal pain, nausea, vomiting or fecal incontinence : Denies: dysuria, urinary frequency, urinary urgency or hematuria Musc: Reports: back pain Skin/Breast: Denies: rash or pruritus Neuro: Denies: difficulty walking PFSH ED PFSH: Medical History Asthma Surgical History No pertinent past surgical history Social History Smoking and tobacco status: current every day smoker Physical Exam Const: GENERAL APPEARANCE: cooperative and comfortable ORIENTATION/CONSCIOUSNESS: Yes awake, Yes oriented to person, Yes oriented to place and Yes oriented to time HENMT: COMMON NORMALS: normocephalic, atraumatic and hearing grossly normal bilaterally HEAD & SCALP: normocephalic and atraumatic Resp: COMMON NORMALS: normal respiratory effort, No retractions, No use of accessory muscles and clear to auscultation bilaterally AUSCULTATION: clear to auscultation bilaterally Cardio: COMMON NORMALS: regular rate, regular rhythm and No murmurs present (Cardio) RATE: regular rate RHYTHM: regular rhythm GI: COMMON NORMALS: Soft to palpation and No hepatosplenomegaly present AUSCULTATION: Yes normoactive bowel sounds PALPATION: Yes Soft to palpation, No Tenderness to palpation present (GI), No Guarding due to palpation present (GI) and Yes No hepatosplenomegaly present Extremity: COMMON NORMALS: normal to inspection, capillary refill normal, no clubbing, cyanosis or edema, no calf tenderness and no pedal edema Neuro: SENSORIUM/ORIENTATION: Yes oriented to person, Yes oriented to place and Yes oriented to time DEEP TENDON REFLEXES: Right patellar reflex intensity grade: 2+ and Left patellar reflex intensity grade: 2+ Skin: COMMON NORMALS: no rashes or lesions noted GENERAL SKIN EXAM: no rashes or lesions noted Course Vital Signs: Vital signs: Vital Signs Temperature 97.4 F L 07/09/23 07:00 Pulse Rate 79 07/09/23 07:13 Respiratory Rate 18 07/09/23 07:28 Blood Pressure 126/104 07/09/23 07:13 Pulse Oximetry 100 07/09/23 07:28 Oxygen Delivery Me thod Room Air 07/09/23 07:13 MDM - Back Pain/Injury Medical Decision Making Pain resolved after initial medications she is feeling much better REJI Hilliard for restriction of 10 to 15 pounds or less. Start oral prednisone taper tomorrow give diclofenac and tizanidine to use as needed as well follow-up with primary care return if worsens. No imaging done as she has no red flag symptoms at this time. Medical Records I reviewed the patient's medical records. Labs I reviewed the patient's lab results. 07/09/23 07:10 07/09/23 07:10 Laboratory Results WBC 7.83 10^3/uL (3.29-11.43) 07/09/23 07:10 RBC 4.40 10^6/uL (3.85-5.65) 07/09/23 07:10 Hgb 13.20 g/dL (11.27-16.99) 07/09/23 07:10 Hct 40.1 % (36-47) 07/09/23 07:10 MCV 91.1 fl (85-98) 07/09/23 07:10 MCH 30.0 pg (27-33) 07/09/23 07:10 MCHC 32.9 g/dL (30-55) 07/09/23 07:10 RDW 12.2 % (12.1-15.1) 07/09/23 07:10 Plt Count 288 10^3/cmm (157-399) 07/09/23 07:10 MPV 10.3 fL (7.4-10.4) 07/09/23 07:10 Neut % (Auto) 59.9 % 07/09/23 07:10 Lymph % (Auto) 30.9 % 07/09/23 07:10 [place] % (Auto) 6.5 % 07/09/23 07:10 Eos % (Auto) 1.5 % 07/09/23 07:10 Baso % (Auto) 0.9 % 07/09/23 07:10 Neut # (Auto) 4.69 10^3/uL (1.8-7.7) 07/09/23 07:10 Lymph # (Auto) 2.4 10^3/uL (0.8-4.8) 07/09/23 07:10 [place] # (Auto) 0.5 10^3/uL (0.2-0.9) 07/09/23 07:10 Eos # (Auto) 0.1 10^3/uL (0.0-0.8) 07/09/23 07:10 Baso # (Auto) 0.1 10^3/uL (0.0-0.1) 07/09/23 07:10 Nucleated RBC % (auto) 0 % 07/09/23 07:10 Nucleated RBCs # 0.0 /100WBC 07/09/23 07:10 Sodium 138 mmol/L (136-145) 07/09/23 07:10 Potassium 4.4 mmol/L (3.5-5.1) 07/09/23 07:10 Chloride 105 mmol/L (98-107) 07/09/23 07:10 Carbon Dioxide 22 mmol/L (22-29) 07/09/23 07:10 Anion Gap 15.4 (5-19) 07/09/23 07:10 BUN 16 mg/dL (6-20) 07/09/23 07:10 Creatinine 0.8 mg/dL (0.5-0.9) 07/09/23 07:10 GFR Calculation 82.1 mL/min (90-130) L 07/09/23 07:10 Glucose 114 mg/dL (65-115) 07/09/23 07:10 Calculated Osmolality 288 mOsm/kg (285-295) 07/09/23 07:10 Calcium 8.8 mg/dL (8.5-10.5) 07/09/23 07:10 Total Bilirubin 0.3 mg/dL (0.15-1.2) 07/09/23 07:10 AST 17 U/L (0-32) 07/09/23 07:10 ALT 16 U/L (0-33) 07/09/23 07:10 Alkaline Phosphatase 68 U/L (35-105) 07/09/23 07:10 Total Protein 7.7 g/dL (6.6-8.7) 07/09/23 07:10 Albumin 4.5 g/dL (3.5-5.2) 07/09/23 07:10 Globulin 3.2 g/dL (1.3-4.6) 07/09/23 07:10 Lipase 26 U/L (13-60) 07/09/23 07:10 HCG, Qual Negative (Negative) 07/09/23 07:10 Urine Color Yellow (Yellow) 07/09/23 08:06 Urine Appearance Clear (CLEAR) 07/09/23 08:06 Urine pH 5 (5-7) 07/09/23 08:06 Ur Specific [place] 1.020 (1.005-1.030) 07/09/23 08:06 Urine Protein Neg (Negative) 07/09/23 08:06 Urine Glucose (UA) Norm (Normal) 07/09/23 08:06 Urine Ketones Negative (Negative) 07/09/23 08:06 Urine Blood Neg (Negative) 07/09/23 08:06 Urine Nitrate Negative (Negative) 07/09/23 08:06 Urine Bilirubin Neg (Negative) 07/09/23 08:06 Urine Urobilinogen Norm mg/dL (Negative) 07/09/23 08:06 Ur Leukocyte Esterase Negative (Negative) 07/09/23 08:06 Discharge Plan Discharge Patient Disposition: Home Clinical Impression: Strain of lumbar region Condition: Stable Prescriptions: New tizanidine 4 mg tablet 4 mg PO Q6H PRN (Reason: muscle spasticity) Qty: 20 0RF Rx Instructions: do not exceed 3 doses per 24 hrs prednisone 20 mg tablet 20 mg PO TID Qty: 15 0RF Rx Instructions: 1 p.o. 3 times daily x3 days, 1 p.o. twice daily x2 days, 1 p.o. daily x2 days diclofenac sodium 75 mg tablet,delayed release (DR/EC) 75 mg PO Q12H PRN (Reason: pain) Qty: 20 0RF Discontinued ibuprofen 200 mg Tablet 800 mg PO Q8H PRN (Reason: Pain) No Action acetaminophen 325 mg Capsule 975 mg PO QID PRN (Reason: Pain) Discharge Orders: Discharge ED (Routine); Ordered 07/09/23 Ordered By: Jonathan Cronin Discharge Diet: Usual diet Discharge Activity: Increase activity as tolerated Patient Instructions: Acute Low Back Pain (ED), Opioid Safety, Pain Management Coding Level of Care Code ED Binding Dyer for Pilar Basilio
[2023-07-09 07:13] VITALS: BP 126/104; PULSE 79; O2SAT 100
[2023-07-09] MEDS: ketorolac 30 mg/mL INJ IVP (07:21)
[2023-07-09] MEDS: dexamethasone 10 mg/mL INJ IVP (07:22)
[2023-07-09] MEDS: orphenadrine 30 mg/mL Inj 2 mL 60 MG IVP (07:24)
[2023-07-09 07:25] LABS: Basophils # 0.1 10^3/uL (0.0-0.1); Basophils % 0.9 %; Eosinophils # 0.1 10^3/uL (0.0-0.8); Eosinophils % 1.5 %; Hematocrit 40.1 % (36-47); Lymphocytes # 2.4 10^3/uL (0.8-4.8); Lymphocytes % 30.9 %; Mean Corpuscular HGB Conc 32.9 g/dL (30-55); Mean Corpuscular Volume 91.1 fl (85-98); Mean Platelet Volume 10.3 fL (7.4-10.4); Monocytes # 0.5 10^3/uL (0.2-0.9); Monocytes % 6.5 %; Neutrophils # 4.69 10^3/uL (1.8-7.7); Neutrophils % 59.9 %; Nucleated Red Blood Cells % 0 %; Platelet Count 288 10^3/cmm (157-399); Red Cell Distribution Width 12.2 % (12.1-15.1); White Blood Count 7.83 10^3/uL (3.29-11.43)
[2023-07-09 07:28] VITALS: RESP 18; O2SAT 100
[2023-07-09] MEDS: morphine 4 mg/mL SDV 1 mL IVP (07:28)
[2023-07-09 07:40] LABS: HCG, Serum Qual Negative (Negative)
[2023-07-09 07:45] LABS: Alanine Aminotransferase 16 U/L (0-33); Albumin Level 4.5 g/dL (3.5-5.2); Alkaline Phosphatase 68 U/L (35-105); Anion Gap 15.4 (5-19); Aspartate Amino Transferase 17 U/L (0-32); Blood Urea Nitrogen 16 mg/dL (6-20); Calcium 8.8 mg/dL (8.5-10.5); Carbon Dioxide 22 mmol/L (22-29); Chloride 105 mmol/L (98-107); Globulin 3.2 g/dL (1.3-4.6); Glomerular Filtration Rate 82.1 mL/min (90-130); Glucose 114 mg/dL (65-115); Lipase 26 U/L (13-60); Osmolality Calculated 288 mOsm/kg (285-295); Potassium 4.4 mmol/L (3.5-5.1); Sodium 138 mmol/L (136-145); Total Bilirubin 0.3 mg/dL (0.15-1.2); Total Protein 7.7 g/dL (6.6-8.7)
[2023-07-09 08:20] LABS: Add Urine Microscopic? NO; Charge for UA Resulting for Rev
[2023-07-09 08:32] LABS: Bilirubin Urine Neg (Negative); Blood Urine Neg (Negative); Glucose Urine UA Norm (Normal); Ketones Urine Negative (Negative); Leukocyte Esterase Urine Negative (Negative); Nitrate Urine Negative (Negative); Protein Urine Neg (Negative); Urine Appearance Clear (CLEAR); Urine Color Yellow (Yellow); Urobilinogen Urine Norm (Negative); pH Urine 5 (5-7)
== END 2023-07-09 08:48 | disposition home or self-care (01) ==
PROVIDERS: Emergency Provider Family Medicine
DX: S39.012A Strain of muscle, fascia and tendon of lower back, initial encounter (principal); F17.210 Nicotine dependence, cigarettes, uncomplicated; X50.0XXA Overexertion from strenuous movement or load, initial encounter; Y99.0 Civilian activity done for income or pay
CPT/HCPCS: 36415; 80053; 81003; 83690; 84703; 85025; 96374; 96375; 99284; J1100; J1885; J2270; J2360

== ENCOUNTER → 2024-02-23 14:03 | Outpatient (BNVA) | payer OTHER, SELFPAY | PROVIDERS: Visit Provider Family Medicine | DX: E66.9 Obesity, unspecified (principal) | CPT/HCPCS: 80053; 80061; 83036; 84443; 85025 ==

== ENCOUNTER → 2024-03-30 09:58 | Outpatient (BNVA) | payer OTHER, SELFPAY | PROVIDERS: PCP Family Medicine; Visit Provider Nurse Practitioner | DX: J02.9 Acute pharyngitis, unspecified (principal) | CPT/HCPCS: 87880 ==

== ENCOUNTER → 2024-04-06 15:10 | Outpatient (BNVA) | payer OTHER, SELFPAY | PROVIDERS: PCP Family Medicine; Visit Provider Student in an Organized Health Care Education/Training Program | DX: M24.412 Recurrent dislocation, left shoulder (principal); M25.312 Other instability, left shoulder | CPT/HCPCS: 73030 ==

== ENCOUNTER 2024-06-08 06:58 | Outpatient (CLI) | payer OTHER, SELFPAY ==
--- NOTE | 2024-06-08 07:00 | CT_ITS ---
WS: [id number] CT LEFT SHOULDER, NONCONTRAST HISTORY: SHOULDER PAIN Technique: All CT scans at [facility] use at least one of these dose optimization techniques: automated exposure control; mA and/or kV adjustment per patient size (includes targeted exams where dose is matched to clinical indication); or iterative reconstruction. DLP: 541.26 mGy.cm COMPARISON: 04/06/2024 Normal position of the humeral head at the glenoid. No acute fracture or displacement. Very slight fl attening of the posterior lateral humeral head. There is an additional cortical defect involving the inferior glenoid which may be from prior injury and avulsion fracture related to a dislocation. No lo ose bodies. Clavicle is negative. No significant narrowing of the AC joint. No joint effusion is appr eciated. No muscle atrophy. CT/CT shoulder LT wo con* [id number] IMPRESSION: 1. No acute fracture. 2. No loose body or joint effusion. 3. Chronic defect in the inferior glenoid is probably from a prior dislocation with healed fracture.
== END 2024-06-08 06:59 | disposition home or self-care (01) ==
LOC: RAD 06:58
PROVIDERS: PCP Family Medicine; Visit Provider Student in an Organized Health Care Education/Training Program
DX: M25.312 Other instability, left shoulder (principal); M24.412 Recurrent dislocation, left shoulder
CPT/HCPCS: 73200

== ENCOUNTER 2024-06-21 16:46 | Emergency (ER) | payer OTHER, SELFPAY ==
--- NOTE | 2024-06-21 16:46 | ECG_ITS ---
[facility] Test Date: 2024-06-21 Pat Name: Stacy Graham Department: Room: Gender: Female Databases Software Consultant: : 1990 Requested By: Jasmeet James Order Number: [id number] Madyson MD: Heidi Sams M.D. Measurements Intervals [place] Rate: 89 P: 66 MS: 170 QRS: 51 QRSD: 90 T: 69 QT: 370 QTc: 452 Interpretive Statements SINUS RHYTHM LOW QRS VOLTAGE IN PRECORDIAL LEADS [QRS DEFLECTION < 1.0 mV IN CHEST LEADS] Compared to ECG 01/29/2018 22:53:03 Low QRS voltage now present Electronically Signed On 06-22-2024 0:19:36 CDT by Heidi Sams M.D. [id number]
[2024-06-21 16:54] VITALS: BP 145/88; PULSE 89; RESP 20; TEMP 36.5; O2SAT 98; BMI 36.1
[2024-06-21 17:20] LABS: Basophils # 0.1 10^3/uL (0.0-0.1); Basophils % 0.5 %; Eosinophils # 0.1 10^3/uL (0.0-0.8); Eosinophils % 1.1 %; Hematocrit 39.7 % (36-47); Lymphocytes # 3.2 10^3/uL (0.8-4.8); Lymphocytes % 32.6 %; Mean Corpuscular HGB Conc 33.8 g/dL (30-55); Mean Corpuscular Hemoglobin 29.7 pg (27-33); Mean Platelet Volume 9.8 fL (7.4-10.4); Monocytes # 0.6 10^3/uL (0.2-0.9); Monocytes % 6.4 %; Neutrophils # 5.69 10^3/uL (1.8-7.7); Neutrophils % 59.1 %; Nucleated Red Blood Cells % 0 %; Platelet Count 322 10^3/cmm (157-399); Red Blood Count 4.51 10^6/uL (3.85-5.65); Red Cell Distribution Width 12.5 % (12.1-15.1); White Blood Count 9.65 10^3/uL (3.29-11.43)
--- NOTE | 2024-06-21 17:37 | W.ED.CHESTPA ---
HPI - Chest Pain General: Chief Complaint: Chest Pain Stated Complaint: Severe Chest Pains Time Seen by Provider: 06/21/24 17:24 History of Present Illness: 34-year-old female comes in today with chest discomfort that started about 1 hour ago prior to exam. Patient was at work and one of the medical clinics and about 40 minutes before the end of shift she started having some chest discomfort. Patient became more concerned as the chest discomfort wound to her left arm. Patient has no chronic medical problems except mental health issues. Patient reports that she had a heart murmur as a child. Patient had no surgeries except C-sections. Initial EKG showed a sinus rhythm with a regular rate at [address] elevation or ectopy is noted. Patient denies any abdominal surgeries or chest surgeries. Patient is tender to the mid epigastric region. Related Data Home Medications Medication Instructions Recorded Confirmed acetaminophen 325 mg capsule 975 mg PO QID PRN Pain 06/01/23 06/15/24 Previous Rx's Medication Instructions Recorded prazosin 2 mg capsule See Rx Instructions .Route 02/23/24 .COMPLEX #90 caps aripiprazole 10 mg tablet 10 mg PO DAILY #30 tabs 04/05/24 ondansetron 4 mg disintegrating 4 mg PO Q8H PRN nausea and 04/05/24 tablet vomiting #30 tabs rizatriptan 5 mg tablet See Rx Instructions PO .COMPLEX 04/05/24 #10 tabs pantoprazole 40 mg tablet,delayed 40 mg PO DAILY 4 weeks #30 tabs 06/21/24 release Allergies Allergy/AdvReac Type Severity Reaction Status Date / Time No Known Allergies Allergy Verified 06/15/24 08:04 Review of Systems General: Reports: 10 or more systems reviewed and unremarkable except in HPI and below Card: Reports: chest pain [facility] ED PFSH: Medical History Chronic dislocation of left shoulder Chronic back pain Obesity (BMI 30.0-34.9) Migraine Asthma Surgical History No pertinent past surgical history Social History Smoking and tobacco/nicotine status: current every day tobacco/nicotine user e-cigarettes E-Cigarette Details: vaporizer device and with nicotine Alcohol intake: never Substance/Drug Use: never Adopted: No service: No Current occupational exposures/hazards: No Current gender identity: Female Physical Exam Const: COMMON NORMALS: alert HENMT: COMMON NORMALS: normocephalic HEAD & SCALP: normocephalic Neck/C-Spine: COMMON NORMALS: full ROM Chest: CHEST: Yes tenderness (Anterior chest) Resp: COMMON NORMALS: normal respiratory effort and clear to auscultation bilaterally AUSCULTATION: clear to auscultation bilaterally Cardio: COMMON NORMALS: regular rate and regular rhythm RATE: regular rate RHYTHM: regular rhythm GI: AUSCULTATION: Yes normoactive bowel sounds PALPATION: Yes Tenderness to palpation present (GI) (Midepigastric) : COMMON NORMALS: Yes no CVA tenderness BLADDER/KIDNEY EXAM: Yes no CVA tenderness Back/Pelvis: COMMON NORMALS: no CVA tenderness and thoracic and lumbar spine normal to inspection Extremity: COMMON NORMALS: normal to inspection Neuro: SENSORIUM/ORIENTATION: Yes alert Skin: COMMON NORMALS: turgor normal GENERAL SKIN EXAM: turgor normal Course Vital Signs: Vital signs: Vital Signs Temperature 97.7 F 06/21/24 16:54 Pulse Rate 81 06/21/24 18:57 Respiratory Rate 18 06/21/24 18:57 Blood Pressure 137/93 06/21/24 18:57 Pulse Oximetry 96 06/21/24 18:57 Oxygen Delivery Me thod Room Air 06/21/24 16:54 MDM - Chest Pain Medical Decision Making Patient comes in today for complaints of chest pain starting about 1 hour prior to arrival. On exam patient appears nontoxic. Patient appears in moderate pain. Patient denies any chronic medical problems except mental health issues. On exam patient is tender to the anterior chest wall in the mid epigastric region of the abdomen. Bowel sounds are present. Heart rate is regular. EKG is normal. Differential diagnosis gallbladder colic, anxiety, ACS, gerd. 1850, patient reports resolution of symptoms. Patient was medicated with 1 nitro, 1 mg of Ativan, 40 mg of pantoprazole, and 162 of aspirin. I believe the patient's symptoms and evaluation suggest patient probably most likely has reflux. CBC and CMP were normal. Initial troponin was negative. We will wait a second troponin to rule out cardiac/ACS. Otherwise we will probably recommend a protein pump inhibitor and follow-up. Patient agrees with plan at this time. 1928, Second troponin come back unremarkable with no change on the delta curve. Reviewed exam with patient with recommendation for treatment and follow-up. Patient will be treated with pantoprazole 40 mg daily for the next 4 weeks with recommendations to follow-up in 2 weeks with primary care for reassessment. Patient states understanding agreed to plan. Lab Data 06/21/24 17:13 06/21/24 17:13 Radiology Impressions Chest X-Ray 06/21/24 17:38 IMPRESSION: No acute findings. Laboratory Results WBC 9.65 10^3/uL (3.29-11.43) 06/21/24 17:13 RBC 4.51 10^6/uL (3.85-5.65) 06/21/24 17:13 Hgb 13.40 g/dL (11.27-16.99) 06/21/24 17:13 Hct 39.7 % (36-47) 06/21/24 17:13 MCV 88.0 fl (85-98) 06/21/24 17:13 MCH 29.7 pg (27-33) 06/21/24 17:13 MCHC 33.8 g/dL (30-55) 06/21/24 17:13 RDW 12.5 % (12.1-15.1) 06/21/24 17:13 Plt Count 322 10^3/cmm (157-399) 06/21/24 17:13 MPV 9.8 fL (7.4-10.4) 06/21/24 17:13 Neut % (Auto) 59.1 % 06/21/24 17:13 Lymph % (Auto) 32.6 % 06/21/24 17:13 [place] % (Auto) 6.4 % 06/21/24 17:13 Eos % (Auto) 1.1 % 06/21/24 17:13 Baso % (Auto) 0.5 % 06/21/24 17:13 Neut # (Auto) 5.69 10^3/uL (1.8-7.7) 06/21/24 17:13 Lymph # (Auto) 3.2 10^3/uL (0.8-4.8) 06/21/24 17:13 [place] # (Auto) 0.6 10^3/uL (0.2-0.9) 06/21/24 17:13 Eos # (Auto) 0.1 10^3/uL (0.0-0.8) 06/21/24 17:13 Baso # (Auto) 0.1 10^3/uL (0.0-0.1) 06/21/24 17:13 Nucleated RBC % (auto) 0 % 06/21/24 17:13 Nucleated RBCs # 0.0 /100WBC 06/21/24 17:13 Sodium 138 mmol/L (136-145) 06/21/24 17:13 Potassium 3.7 mmol/L (3.5-5.1) 06/21/24 17:13 Chloride 102 mmol/L (98-107) 06/21/24 17:13 Carbon Dioxide 21 mmol/L (22-29) L 06/21/24 17:13 Anion Gap 18.7 (5-19) 06/21/24 17:13 BUN 17 mg/dL (6-20) 06/21/24 17:13 Creatinine 0.8 mg/dL (0.5-0.9) 06/21/24 17:13 GFR Calculation 81.6 mL/min (90-130) L 06/21/24 17:13 Glucose 94 mg/dL (65-115) 06/21/24 17:13 Calculated Osmolality 287 mOsm/kg (285-295) 06/21/24 17:13 Calcium 9.2 mg/dL (8.5-10.5) 06/21/24 17:13 Total Bilirubin 0.3 mg/dL (0.15-1.2) 06/21/24 17:13 AST 20 U/L (0-32) 06/21/24 17:13 ALT 22 U/L (0-33) 06/21/24 17:13 Alkaline Phosphatase 78 U/L (35-105) 06/21/24 17:13 Troponin T Baseline < 6 ng/L (0-10) 06/21/24 17:13 Troponin T 120 Minute 6.00 ng/L (0-10) 06/21/24 19:00 Delta Troponin T 0.19311 ABS# (0-10) 06/21/24 19:00 Total Protein 7.7 g/dL (6.6-8.7) 06/21/24 17:13 Albumin 4.4 g/dL (3.5-5.2) 06/21/24 17:13 Globulin 3.3 g/dL (1.3-4.6) 06/21/24 17:13 Lipase 30 U/L (13-60) 06/21/24 17:13 HCG, Qual Negative (Negative) 06/21/24 17:13 All radiology interpretation(s) finalized by discharge Discharge Plan Discharge Patient Disposition: Home Clinical Impression: Chest pain due to GERD Chest pain Qualifiers: Chest pain type: unspecified Qualified Code(s): R07.9 - Chest pain, unspecified Condition: Stable Prescriptions: New pantoprazole 40 mg tablet,delayed release (DR/EC) 40 mg PO DAILY 28 Days Qty: 30 0RF No Action rizatriptan 5 mg tablet See Rx Instructions PO .COMPLEX Qty: 10 0RF Rx Instructions: take 1 tablet at onset of headache; if no relief, may repeat 1 tablet after at least 2 hrs PO ondansetron 4 mg tablet,disintegrating 4 mg PO Q8H PRN (Reason: nausea and vomiting) Qty: 30 0RF aripiprazole 10 mg tablet 10 mg PO DAILY Qty: 30 1RF prazosin 2 mg capsule See Rx Instructions .ROUTE .COMPLEX Qty: 90 0RF Dose Instruction: TAKE 1 CAPSULE BY MOUTH DAILY Rx Instructions: TAKE 1 CAPSULE BY MOUTH DAILY acetaminophen 325 mg Capsule 975 mg PO QID PRN (Reason: Pain) Discharge Orders: Discharge ED (Routine); Ordered 06/21/24 Ordered By: Jasmeet Madrid Referrals: Carlos Chavarria MD [Primary Care Provider] - Discharge Diet: As Directed Discharge Activity: Increase activity as tolerated Patient Instructions: Diet for Stomach Ulcers and Gastritis (ED), Gastroesophageal Reflux in Infants (ED) Activity Restrictions/Additional Instructions: Take pantoprazole 30 minutes before your first meal of the day. Continue medication for the next 6 to 8 weeks. Drink plenty water and fluids. Follow-up with primary care in 2 weeks for recheck. Return to ED for new concerns or worsening symptoms. Coding Level of Care Code ED Robotic Welder for Pilar Basilio
--- NOTE | 2024-06-21 17:38 | XRR_ITS ---
PROCEDURE INFORMATION: Exam: XR Chest Exam date and time: 06/21/2024 6:08 PM Age: 34 years old Clinical indication: Chest wall pain; Additional info: Chest pain that starts in middle and radiates to left side x 1 day, weakness TECHNIQUE: Imaging protocol: Radiologic exam of the chest. Views: 1 view. COMPARISON: CR XR chest 1V portable [id number] 07/13/2022 11:39 AM FINDINGS: Lungs: Unremarkable. No consolidation. Pleural spaces: Unremarkable. No pleural effusion. No pneumothorax. Heart/Mediastinum: Unremarkable. No cardiomegaly. Bones/joints: Unremarkable. XR/XR chest 1V portable [id number] IMPRESSION: No acute findings.
[2024-06-21 17:42] LABS: HCG, Serum Qual Negative (Negative)
[2024-06-21 17:47] LABS: Troponin(5th) Baseline < 6 ng/L (0-10)
[2024-06-21] MEDS: pantoprazole 40 mg SDV IVP (17:52)
[2024-06-21] MEDS: aspirin 81 mg Chew Tablet 162 MG PO (17:54)
[2024-06-21] MEDS: nitroglycerin 0.4 mg sublingual Tablet SUBLINGUAL (17:54)
[2024-06-21] MEDS: LORazepam 2 mg/mL INJ 1 mL 1 MG IVP (17:55)
[2024-06-21 18:00] LABS: Alanine Aminotransferase 22 U/L (0-33); Albumin Level 4.4 g/dL (3.5-5.2); Alkaline Phosphatase 78 U/L (35-105); Anion Gap 18.7 (5-19); Aspartate Amino Transferase 20 U/L (0-32); Blood Urea Nitrogen 17 mg/dL (6-20); Calcium 9.2 mg/dL (8.5-10.5); Carbon Dioxide 21 mmol/L (22-29); Chloride 102 mmol/L (98-107); Creatinine Clr Calc Pharmacy 126.3166; Globulin 3.3 g/dL (1.3-4.6); Glomerular Filtration Rate 81.6 mL/min (90-130); Glucose 94 mg/dL (65-115); Lipase 30 U/L (13-60); Osmolality Calculated 287 mOsm/kg (285-295); Potassium 3.7 mmol/L (3.5-5.1); Sodium 138 mmol/L (136-145); Total Bilirubin 0.3 mg/dL (0.15-1.2); Total Protein 7.7 g/dL (6.6-8.7)
[2024-06-21 18:57] VITALS: BP 137/93; PULSE 81; RESP 18; O2SAT 96
--- NOTE | 2024-06-21 19:04 | ECG_ITS ---
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 Measurements Intervals [place] Rate: 70 P: 62 KS: 200 QRS: 45 QRSD: 89 T: 59 QT: 386 QTc: 419 Interpretive Statements SINUS RHYTHM LOW QRS VOLTAGE IN PRECORDIAL LEADS [QRS DEFLECTION < 1.0 mV IN CHEST LEADS] Compared to ECG 06/21/2024 16:46:39 No significant changes Electronically Signed On 06-22-2024 0:24:01 CDT by Heidi Sams M.D. [id number]
[2024-06-21 19:22] LABS: Troponin 5 2HR Delta 0.00001 ABS# (0-10)
[2024-06-21 19:41] VITALS: BP 140/91; PULSE 81; RESP 18; TEMP 36.5; O2SAT 99
== END 2024-06-21 19:42 | disposition home or self-care (01) ==
PROVIDERS: Emergency Provider Nurse Practitioner Family; PCP Family Medicine
DX: K21.9 Gastro-esophageal reflux disease without esophagitis (principal); R07.9 Chest pain, unspecified; F17.290 Nicotine dependence, other tobacco product, uncomplicated
CPT/HCPCS: 36415; 71045; 80053; 83690; 84484; 84703; 85025; 93005; 96374; 96375; 99285; J2060; J2470

== ENCOUNTER → 2024-07-21 09:02 | Outpatient (BNVA) | payer OTHER, SELFPAY | PROVIDERS: PCP Family Medicine; Visit Provider Student in an Organized Health Care Education/Training Program | DX: M25.312 Other instability, left shoulder (principal); S43.432A Superior glenoid labrum lesion of left shoulder, initial encounter; X58.XXXA Exposure to other specified factors, initial encounter | CPT/HCPCS: 77002 ==

== ENCOUNTER 2024-08-30 06:53 | Emergency (ER) | payer OTHER, SELFPAY ==
[2024-08-30 06:56] VITALS: BP 120/69; PULSE 93; RESP 20; TEMP 36.4; O2SAT 98
--- NOTE | 2024-08-30 06:58 | ECG_ITS ---
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 Measurements Intervals [place] Rate: 73 P: 36 W[place]: 170 QRS: 59 QRSD: 83 T: 59 QT: 358 QTc: 396 Interpretive Statements SINUS RHYTHM WITH SINUS ARRHYTHMIA Compared to ECG 06/21/2024 19:10:18 No significant changes Electronically Signed On 08-31-2024 17:21:55 CDT by Symone Lemon M.D. [id number]
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
--- NOTE | 2024-08-30 07:54 | PC.PHAR ---
Patient states she is not taking any prescribed medication she stopped and is taking vitamins and minerals
[2024-08-30] MEDS: ketorolac 30 mg/mL INJ IVP (08:13)
[2024-08-30] MEDS: orphenadrine 30 mg/mL Inj 2 mL 60 MG IM (08:13)
[2024-08-30 08:17] VITALS: BP 121/94; PULSE 80; RESP 18; O2SAT 95
[2024-08-30 08:36] LABS: Basophils # 0.1 10^3/uL (0.0-0.1); Basophils % 0.6 %; Eosinophils % 0.3 %; Hematocrit 40.9 % (36-47); Lymphocytes % 20.9 %; Mean Corpuscular HGB Conc 32.8 g/dL (30-55); Mean Corpuscular Hemoglobin 29.9 pg (27-33); Mean Corpuscular Volume 91.3 fl (85-98); Mean Platelet Volume 10.4 fL (7.4-10.4); Monocytes # 0.5 10^3/uL (0.2-0.9); Monocytes % 5.3 %; Neutrophils # 6.82 10^3/uL (1.8-7.7); Neutrophils % 72.6 %; Nucleated Red Blood Cells % 0 %; Platelet Count 267 10^3/cmm (157-399); Red Blood Count 4.48 10^6/uL (3.85-5.65); Red Cell Distribution Width 12.6 % (12.1-15.1)
[2024-08-30 08:58] LABS: Alanine Aminotransferase 22 U/L (0-33); Albumin Level 4.1 g/dL (3.5-5.2); Alkaline Phosphatase 74 U/L (35-105); Anion Gap 14.1 (5-19); Aspartate Amino Transferase 19 U/L (0-32); Blood Urea Nitrogen 14 mg/dL (6-20); Calcium 8.6 mg/dL (8.5-10.5); Carbon Dioxide 21 mmol/L (22-29); Chloride 106 mmol/L (98-107); Creatinine Clr Calc Pharmacy 122.9431; Globulin 2.9 g/dL (1.3-4.6); Glomerular Filtration Rate 81.6 mL/min (90-130); Glucose 111 mg/dL (65-115); Osmolality Calculated 285 mOsm/kg (285-295); Potassium 4.1 mmol/L (3.5-5.1); Sodium 137 mmol/L (136-145); Total Bilirubin 0.2 mg/dL (0.15-1.2)
[2024-08-30 09:00] LABS: Bilirubin Urine Negative (Negative); Blood Urine Negative (Negative); Glucose Urine UA Negative (Normal); Ketones Urine Negative (Negative); Leukocyte Esterase Urine Trace (Negative); Nitrate Urine Negative (Negative); Protein Urine Negative (Negative); Specific Gravity, Urine 1.009 (1.005-1.030); Urine Appearance Clear (CLEAR); Urine Color Yellow (Yellow); Urobilinogen Urine 0.2 mg/dL (Negative); pH Urine 6.5 (5-7)
[2024-08-30 09:40] LABS: UA Manual Slide Review YES; UA Slide Review UA Slide Review Perf
[2024-08-30 09:41] LABS: Add Urine Culture? No; Add Urine Microscopic? YES; RBC Urine RARE /hpf (0-2); WBC Urine 0-4 /hpf (0-5)
[2024-08-30 10:23] VITALS: BP 125/92; PULSE 78; RESP 16; O2SAT 100
== END 2024-08-30 10:23 | disposition home or self-care (01) ==
PROVIDERS: Emergency Provider Family Medicine; PCP Family Medicine
DX: S39.012A Strain of muscle, fascia and tendon of lower back, initial encounter (principal); M54.2 Cervicalgia; V89.2XXA Person injured in unspecified motor-vehicle accident, traffic, initial encounter; F17.290 Nicotine dependence, other tobacco product, uncomplicated
CPT/HCPCS: 71045; 72040; 72100; 80053; 81001; 85025; 93005; 96372; 96374; 99285; J1885; J2360

== ENCOUNTER 2024-12-24 13:14 | Emergency (ER) | payer BC, SELFPAY ==
--- NOTE | 2024-12-24 13:20 | W.ED.WOUNDLC ---
HPI - Wound/Laceration General: Chief Complaint: Wound/Laceration Stated Complaint: left hand cut fingers Time Seen by Provider: 12/24/24 13:15 Source: patient Mode of arrival: ambulatory Limitations: no limitations History of Present Illness: 34-year-old female presents to the ER for a wound laceration on her left middle finger. She states she was using a knife to take coconut meat out while trying to make coconut oil at home. Patient states she tried to wrap it with gauze and apply pressure but continued to bleed. Patient is not sure of her tetanus status. Onset (ago): hour(s) Location: other (Left finger ) Extremity Location: Left: hand (Middle finger) Place: home Patient tetanus UTD: No Context: accidental Associated symptoms: Reports no associated symptoms; Denies chills or fever(s) Treatments prior to arrival: bandage Related Data Home Medications ?Medication ?Instructions ?Recorded ?Confirmed acetaminophen 325 mg capsule 975 mg PO QID PRN Pain 06/01/23 10/18/24 vitamin B complex 1 tab PO DAILY 08/30/24 10/18/24 vitamin C 45 mg-zinc citrate 4 1 tab PO DAILY PRN colds 08/30/24 10/18/24 mg-elderberry 50 mg chewable tablet (Sympoz) Previous Rx's ?Medication ?Instructions ?Recorded cephalexin 500 mg capsule 500 mg PO Q6H 7 days #28 caps 12/24/24 Allergies Allergy/AdvReac Type Severity Reaction Status Date / Time No Known Allergies Allergy Verified 12/24/24 13:28 Review of Systems Const: Denies: fever(s), chills, body aches or change in appetite Skin/Breast: Reports: skin pain and other (Wound laceration on left middle finger); Denies: rash, pruritus or erythema PFSH ED PFSH: Medical History Chronic dislocation of left shoulder Chronic back pain Obesity (BMI 30.0-34.9) Migraine Asthma Surgical History No pertinent past surgical history Social History Smoking and tobacco/nicotine status: current every day tobacco/nicotine user e-cigarettes E-Cigarette Details: vaporizer device and with nicotine Alcohol intake: never Substance/Drug Use: never Adopted: No service: No Current occupational exposures/hazards: No Current gender identity: Female Physical Exam Const: COMMON NORMALS: patient oriented x3 and alert EXAM LIMITATIONS: no altered mental status and no language barrier GENERAL APPEARANCE: cooperative and anxious Extremity: LEFT UPPER EXTREMITY: Yes hand & digits (Left middle finger laceration overlying distal palmar pad ) Left hand and digits: Yes neurovascular exam (normal ) and Yes tendon exam (No tendon injuries noted ) Neuro: COMMON NORMALS: patient oriented x3 SENSORIUM/ORIENTATION: Yes alert Skin: TRAUMA: laceration Procedures Laceration Laceration 1: Site: hand Side (If applicable): left Size (cm): 1.25 Description: linear Depth: simple, single layer Local Anesthetic: lidocaine 1% (digital block) Amount of anesthesia used (mL): 3.0 Pre-repair: wound explored and irrigated extensively Skin layer closed with: nylon Size (cm): 5-0 Number of sutures: 4 Technique: simple, interrupted Course Vital Signs: Vital signs: Vital Signs Temperature 97.9 F 12/24/24 13:23 Pulse Rate 80 12/24/24 13:23 Blood Pressure 139/88 12/24/24 13:23 Pulse Oximetry 98 12/24/24 13:23 Oxygen Delivery Me thod Room Air 12/24/24 13:23 MDM - Wound/Laceration Medical Decision Making Wound was copiously irrigated and repaired as documented. XR was unremarkable. Tetanus will be updated. Wound care/infection precautions as well as suture removal instructions discussed/attached to discharge paperwork. Differential Diagnosis Likely laceration Medical Records I reviewed the patient's medical records. XR interpretation done by ED provider, pending radiology final review Discharge Plan Discharge Patient Disposition: Home Clinical Impression: Laceration of left middle finger Qualifiers: Encounter type: initial encounter Damage to nail status: without damage Foreign body presence: without foreign body Qualified Code(s): S61.213A - Laceration without foreign body of left middle finger without damage to nail, initial encounter Condition: Stable Prescriptions: New cephalexin 500 mg capsule 500 mg PO Q6H 7 Days Qty: 28 0RF No Action acetaminophen 325 mg Capsule 975 mg PO QID PRN (Reason: Pain) vitamin B complex Tablet 1 tab PO DAILY Sympoz 45-4-50 mg Tablet,Chewable 1 tab PO DAILY PRN (Reason: colds) Discharge Orders: Discharge ED (Routine); Ordered 12/24/24 Ordered By: Genna Houser Referrals: Carlos Chavarria MD [Primary Care Provider] - Patient Instructions: Laceration (DC), Finger Laceration (ED) Activity Restrictions/Additional Instructions: Keep wound/laceration clean with warm soap and water twice daily. Monitor for signs of infection such as redness, swelling, increased pain, or drainage. Please seek medical re-evaluation if these occur. If you received sutures today these will need to be removed (unless you were told by the provider that they are absorbable). The provider should have discussed with you the length of time until removal-7 DAYS. Print Language: Turkmen Coding Level of Care Code ED [employer] for Pilar Basilio
[2024-12-24 13:23] VITALS: BP 139/88; PULSE 80; TEMP 36.6; O2SAT 98
--- NOTE | 2024-12-24 13:27 | XRR_ITS ---
PROCEDURE INFORMATION: Exam: XR Left Finger(s) Exam date and time: 12/24/2024 1:45 PM Age: 34 years old Clinical indication: Injury or trauma; Left; Middle finger; Laceration to distal area of lt 3rd digit TECHNIQUE: Imaging protocol: Radiologic exam of the left fingers. Views: Minimum 2 views. COMPARISON: No relevant prior studies available. FINDINGS: Bones/joints: Normal. Soft tissues: Normal. XR/XR finger LT min 2V [id number] IMPRESSION: No acute fracture or dislocation.
[2024-12-24] MEDS: tetanus-dipt-pertussis 0.5 mL SDV IM (14:29)
[2024-12-24 14:45] VITALS: BP 136/87; PULSE 78; RESP 16; O2SAT 99
== END 2024-12-24 14:45 | disposition home or self-care (01) ==
PROVIDERS: Emergency Provider Physician Assistant; PCP Family Medicine
DX: S61.213A Laceration without foreign body of left middle finger without damage to nail, initial encounter (principal); X58.XXXA Exposure to other specified factors, initial encounter
CPT/HCPCS: 12001; 73140; 90471; 90715; 99283

== ENCOUNTER 2024-12-26 17:45 | Emergency (ER) | payer OTHER, SELFPAY ==
[2024-12-26 17:48] VITALS: BP 138/90; PULSE 99; RESP 16; TEMP 36.7; O2SAT 99; BMI 36.0
[2024-12-26 18:20] VITALS: BP 134/96
--- NOTE | 2024-12-26 18:31 | ED_ITS ---
HPI - Wound/Laceration General: Chief Complaint: Wound/Laceration Stated Complaint: stiches ripping appart on finger Time Seen by Provider: 12/26/24 18:17 Source: patient Mode of arrival: ambulatory Limitations: no limitations History of Present Illness: Patient is a 34-year-old female who presents the emergency department planing of left middle finger pain and swelling. Patient was here on Wednesday, presented with a laceration to the finger pad left middle finger after trying to cut open a coconut. She had 4 stitches placed and was started on Keflex. 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 States that the pain and swelling has gotten worse, she was concerned of the integrity of the wound. She has been taking ibuprofen and Tylenol for pain. Denies any fever, nausea/vomiting, or any other concerns or signs of systemic illness. Onset (ago): day(s) Extremity Location: Left: hand Place: home Patient tetanus UTD: Yes Context: accidental Associated symptoms: Denies chills, fever(s), nausea or vomiting Treatments prior to arrival: other (Antibiotics) Related Data Home Medications ?Medication ?Instructions ?Recorded ?Confirmed acetaminophen 325 mg capsule 975 mg PO QID PRN Pain 10/18/24 vitamin B complex 1 tab PO DAILY 08/30/2410/01 vitamin C 45 mg-zinc citrate 4 1 tab PO DAILY PRN cold s 08/30/24 10/18/24 mg-elderberry 50 mg chewable tablet ([employer]) Previous Rx's ?Medication ?Instructions ?Recorded amoxicillin 875 mg-potassium 1 tab PO BID 7 days #14 t abs 12/26/24 clavulanate 125 mg tablet Allergies Allergy/AdvReac Type Severity Reaction Status Date / Time No Known Allergies Allergy Verified 12/24/24 13:28 Review of Systems General: Reports: 10 or more systems reviewed and unremarkable except in HPI and below Const: Denies: fever(s) or chills Card: Denies: chest pain Resp: Denies: dyspnea GI: Denies: abdominal pain, nausea, vomiting or diarrhea Musc: Reports: extremity pain and extremity swelling; Denies: joint pain Skin/Breast: Reports: non-healing lesions; Denies: rash, skin pain or skin tenderness Neuro: Denies: headache(s) PFSH ED PFSH: Medical History Chronic dislocation of left shoulder Chronic back pain Obesity (BMI 30.0-34.9) Migraine Asthma Surgical History No pertinent past surgical history Social History Smoking and tobacco/nicotine status: current every day tobacco/nicotine user e- cigarettes E-Cigarette Details: vaporizer device and with nicotine Alcohol intake: never Substance/Drug Use: never Adopted: No service: No Current occupational exposures/hazards: No Current gender identity: Female Physical Exam Const: COMMON NORMALS: no acute distress, average body habitus, patient oriented x3, no limitations, healthy appearing, alert and well nourished HENMT: COMMON NORMALS: normocephalic and atraumatic HEAD & SCALP: normocephalic and atraumatic Neck/C-Spine: COMMON NORMALS: full ROM, no lymphadenopathy, supple and no meningeal signs Resp: COMMON NORMALS: normal respiratory effort, No use of accessory muscles and clear to auscultation bilaterally AUSCULTATION: clear to auscultation bilaterally Cardio: COMMON NORMALS: regular rate and regular rhythm RATE: regular rate RHYTHM: regular rhythm Extremity: COMMON NORMALS: full ROM, capillary refill normal and no joint enlargement Neuro: COMMON NORMALS: patient oriented x3, moves all extremities, no focal motor deficits and no sensory deficits noted SENSORIUM/ORIENTATION: Yes alert MENINGEAL SIGNS: Yes no meningeal signs Skin: COMMON NORMALS: turgor normal NARRATIVE SKIN EXAM: Laceration to pad of left middle finger shows signs of healing, with eschar forming. There is very mild cracking of the laceration on either side of the sutures, though this is still well-approximated and I believe secondary to use of the finger. Overall no significant swelling, no drainage from the wound. Tender to palpation over this area. Neurovascular status intact. GENERAL SKIN EXAM: turgor normal Course Vital Signs: Vital signs: Vital Signs Temperature 98.0 F 12/26/24 17:48 Pulse Rate 99 12/26/24 17:48 Respiratory Rate 16 12/26/24 17:48 Blood Pressure 134/96 12/26/24 18:20 Pulse Oximetry 99 12/26/24 17:48 MDM - Wound/Laceration Medical Decision Making Patient presented for evaluation of a wound that she had repaired here on Wednesday. She was concerned that it was breaking open, on exam the wound did appear to be healing well. Though I do suspect that the mild cracking on either side of the wound that she is reporting secondary to overuse, still does not require any intervention at this time. Will switch to Augmentin with her concerns of infection, and have her start immobilizing that finger and not using at work to avoid any poor cosmesis or poor healing. Ultimately offered lab and an x-ray of the finger just to make sure infection was not spreading but she denied this stating she wanted to go home. No radiology studies performed this visit Discharge Plan Discharge Patient Disposition: Home Clinical Impression: Laceration of left middle finger Condition: Stable Prescriptions: New amoxicillin-pot clavulanate 875-125 mg tablet 1 tab PO BID 7 Days Qty: 14 0RF Discontinued cephalexin 500 mg capsule 500 mg PO Q6H 7 Days Qty: 28 0RF No Action acetaminophen 325 mg Capsule 975 mg PO QID PRN (Reason: Pain) vitamin B complex Tablet 1 tab PO DAILY Elderberry [facility] 45-4-50 mg Tablet,Chewable 1 tab PO DAILY PRN (Reason: colds) Discharge Orders: Discharge ED (Routine); Ordered 12/26/24 Ordered By: Lg Kaur Referrals: Carlos Chavarria MD [Primary Care Provider] - Activity Restrictions/Additional Instructions: Please stop the Keflex and begin taking Augmentin. Please immobilize the finger as we discussed, avoid any use so as to avoid any poor healing or delayed healing. Note that if you start developing any high fever, signs of systemic illness, or other significant concerns to return back for further workup. Continue ibuprofen and Tylenol for pain. Print Language: Colombian Coding Level of Care Code ED [employer] for Pilar Basilio
--- NOTE | 2024-12-26 18:40 | PC.NURSE ---
pt refused blood draw, Natasha notified and okayed.
[2024-12-26] MEDS: amoxicillin-clav 875-125 mg Tablet 1 TAB PO (18:44)
== END 2024-12-26 18:51 | disposition home or self-care (01) ==
PROVIDERS: Emergency Provider Physician Assistant; PCP Family Medicine
DX: S61.213D Laceration without foreign body of left middle finger without damage to nail, subsequent encounter (principal); F17.290 Nicotine dependence, other tobacco product, uncomplicated; X58.XXXD Exposure to other specified factors, subsequent encounter
CPT/HCPCS: 99283

== ENCOUNTER → 2025-01-22 13:18 | Outpatient (BNVA) | payer OTHER, SELFPAY | PROVIDERS: PCP Family Medicine; Visit Provider Family Medicine | DX: R50.9 Fever, unspecified (principal) | CPT/HCPCS: 87400; 87426 ==

== ENCOUNTER 2025-02-15 07:49 | Emergency (ER) | payer OTHER, SELFPAY ==
--- NOTE | 2025-02-15 07:51 | XR_ITS ---
WS: [id number] Portable AP semiupright chest, 02/15/2025 Clinical Data: dyspnea/cough Comparison: Portable chest, 08/30/2024 Findings: No nodules, masses or effusions are seen. The heart is normal. The pulmonary vascularity is not increased. No pneumonia or pneumothorax is seen. Monitor leads are on the chest wall. XR/XR chest 1V portable [id number] Impression: Negative chest.
--- NOTE | 2025-02-15 07:53 | ECG_ITS ---
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 Measurements Intervals [place] Rate: 89 P: 126 MD: 135 QRS: 128 QRSD: 85 T: 131 QT: 347 QTc: 422 Interpretive Statements SINUS RHYTHM ARM LEADS REVERSED [INVERTED P AND QRS IN I] Compared to ECG 08/30/2024 06:58:30 Sinus arrhythmia no longer present Electronically Signed On 02-16-2025 08:46:03 CDT by Heidi Sams M.D. [email or web address] [id number]
[2025-02-15 07:57] VITALS: BP 139/102; PULSE 84; RESP 26; TEMP 36.4; O2SAT 97; BMI 36.9
--- NOTE | 2025-02-15 08:05 | ED_ITS ---
HPI - SOB/Dyspnea 2 General: Chief Complaint: Shortness of Breath/Dyspnea Stated Complaint: sob Time Seen by Provider: 02/15/25 07:51 History of Present Illness: HPI Narrative: 35-year-old female presents to the [facility] ency room complaining of shortness of breath. States she may have gotten exposed some chemicals last night this morning she has increased shortness of breath. On arrival here she is tachypneic. Her respiratory rate is mid 30s and above. Her oxygen saturation is normal. She is communicating by text initially because she feels like she cannot breathe well enough to talk. Associated symptoms: Deny abdominal pain, chest pain or fever(s) Related Data Home Medications ?Medication ?Instructions ?Recorded ?Confirmed acetaminophen 325 mg capsule 975 mg PO QID PRN Pain 02/15/25 vitamin B complex 1 tab PO DAILY 08/30/2401/30 vitamin C 45 mg-zinc citrate 4 1 tab PO DAILY PRN cold s 08/30/24 02/15/25 mg-elderberry 50 mg chewable tablet ([facility]) Previous Rx's ?Medication ?Instructions ?Recorded albuterol sulfate 2.5 mg/3 mL 2.5 mg (3 mL) inhalation Q6H PRN 02/15/25 (0.083 %) solution for nebulization shortness of breat h or wheezing #75 mL albuterol sulfate 90 mcg/actuation 2 inh inhalation Q4 H PRN shortness 02/15/25 aerosol inhaler of breath or wheezing #18 gr ams hydroxyzine HCl 25 mg tablet 25 mg PO Q6H PRN anxiety #14 tabs 02/15/25 methylprednisolone 4 mg tablets in See Rx Instructions PO .COMPLEX 02/15/25 a dose pack (Medrol (Fuad)) #21 ea Allergies Allergy/AdvReac Type Severity Reaction Status Date / Time No Known Allergies Allergy Verified 02/15/25 08:13 Review of Systems 2 Const: Denies: fever(s) or chills Card: Denies: chest pain Resp: Reports: dyspnea GI: Denies: abdominal pain : Denies: dysuria, urinary frequency or urinary urgency Musc: Denies: neck pain or back pain Skin/Breast: Denies: rash PFSH ED 2 PFSH: Medical History Chronic dislocation of left shoulder Chronic back pain Obesity (BMI 30.0-34.9) Migraine Asthma Surgical History No pertinent past surgical history Social History Smoking and tobacco/nicotine status: current every day tobacco/nicotine user e- cigarettes E-Cigarette Details: vaporizer device and with nicotine Alcohol intake: never Substance/Drug Use: never Adopted: No service: No Current occupational exposures/hazards: No Current gender identity: Female Physical Exam 2 Const: GENERAL APPEARANCE: cooperative ORIENTATION/CONSCIOUSNESS: Yes awake, Yes oriented to person, Yes oriented to place and Yes oriented to time HENMT: COMMON NORMALS: normocephalic, atraumatic and hearing grossly normal bilaterally HEAD & SCALP: normocephalic and atraumatic Resp: COMMON NORMALS: normal respiratory effort, No retractions, No use of accessory muscles and clear to auscultation bilaterally AUSCULTATION: clear to auscultation bilaterally Cardio: COMMON NORMALS: regular rate, regular rhythm and No murmurs present (Cardio) RATE: regular rate RHYTHM: regular rhythm GI: COMMON NORMALS: Soft to palpation and No hepatosplenomegaly present A USCULTATION: Yes normoactive bowel sounds PALPATION: Yes Soft to palpation, No Tenderness to palpation present (GI), No Guarding due to palpation present (GI) and Yes No hepatosplenomegaly present Extremity: COMMON NORMALS: normal to inspection, capillary refill normal, no clubbing, cyanosis or edema, no calf tenderness and no pedal edema Neuro: SENSORIUM/ORIENTATION: Yes oriented to person, Yes oriented to place and Yes oriented to time Skin: COMMON NORMALS: no rashes or lesions noted GENERAL SKIN EXAM: no rashes or lesions noted Course 2 Vital Signs: Vital signs: Vital Signs Temperature 97.6 F 02/15/25 07:57 Pulse Rate 89 02/15/25 09:56 Respiratory Rate 24 H 02/15/25 08:17 Blood Pressure 139/100 02/15/25 09:56 Pulse Oximetry 95 02/15/25 09:56 Oxygen Delivery Me thod Room Air 02/15/25 08:17 MDM - SOB/Dyspnea Medical Decision Making Patient hyperventilating when she first arrived no wheezing. No real stridor. She had difficult time talking initially. ABG shows respiratory alkalosis. She was given nebulizer and Ativan. Improved now able to speak. Chest x-ray was negative. Will discharge patient home hydroxyzine to help with anxiety she is concerned about the chemical exposure. Probably did cause some irritation but she is not having any wheezing at this time we will put her on a prednisone taper also refilled her albuterol. Follow-up with primary care doctor Medical Records I reviewed the patient's medical records. Lab Data I reviewed the patient's lab results. 02/15/25 08:10 02/15/25 08:10 Labs/Radiology: Radiology Impressions Chest X-Ray 02/15/25 07:51 Impression: Negative chest. Laboratory Results WBC 8.34 10^3/uL (3.29-11.43) 02/15/25 08:10 RBC 4.63 10^6/uL (3.85-5.65) 02/15/25 08:10 Hgb 13.90 g/dL (11.27-16.99) 02/15/25 08:10 Hct 41.9 % (36-47) 02/15/25 08:10 MCV 90.5 fl (85-98) 02/15/25 08:10 MCH 30.0 pg (27-33) 02/15/25 08:10 MCHC 33.2 g/dL (30-55) 02/15/25 08:10 RDW 12.7 % (12.1-15.1) 02/15/25 08:10 Plt Count 297 10^3/cmm (157-399) 02/15/25 08:10 MPV 10.5 fL (7.4-10.4) H 02/15/25 08:10 Neut % (Auto) 56.5 % 02/15/25 08:10 Lymph % (Auto) 35.4 % 02/15/25 08:10 [place] % (Auto) 6.1 % 02/15/25 08:10 Eos % (Auto) 1.0 % 02/15/25 08:10 Baso % (Auto) 0.8 % 02/15/25 08:10 Neut # (Auto) 4.71 10^3/uL (1.8-7.7) 02/15/25 08:10 Lymph # (Auto) 3.0 10^3/uL (0.8-4.8) 02/15/25 08:10 [place] # (Auto) 0.5 10^3/uL (0.2-0.9) 02/15/25 08:10 Eos # (Auto) 0.1 10^3/uL (0.0-0.8) 02/15/25 08:10 Baso # (Auto) 0.1 10^3/uL (0.0-0.1) 02/15/25 08:10 Nucleated RBC % (auto) 0 % 02/15/25 08:10 Nucleated RBCs # 0.0 /100WBC 02/15/25 08:10 Specimen Type Arterial 02/15/25 08:13 Sample Site Radial, right 02/15/25 08:13 ABG pH 7.50 (7.35-7.45) H 02/15/25 08:13 ABG pCO2 24.3 mmHg (35-45) L 02/15/25 08:13 ABG pO2 103.0 mmHg (80.0-100.0) H 02/15/25 08:13 ABG PO2/FiO2 Ratio 490 02/15/25 08:13 ABG HCO3 18.8 mmol/L (22-26) L 02/15/25 08:13 ABG O2 Saturation 99.1 02/15/25 08:13 ABG Base Excess -2.7 mmol/L (-2.0-2.0) L 02/15/25 08:13 Karri Test Pos 02/15/25 08:13 A-a O2 Gradient 1.8 mmHg (5-10) L 02/15/25 08:13 Hematocrit 44.0 % (37-47) 02/15/25 08:13 Hgb O2 Saturation 97.1 % (95-100) 02/15/25 08:13 Carboxyhemoglobin 1.0 %THgb (0.4-20.1) 02/15/25 08:13 Methemoglobin 0.9 % (0.4-1.5) 02/15/25 08:13 Total Hemoglobin 14.4 g/dL (12-16) 02/15/25 08:13 Sodium 139.0 mmol/L (131-143) 02/15/25 08:13 Potassium 3.5 mmol/L (3.5-5.0) 02/15/25 08:13 Glucose 120.0 mg/dL (70-115) H 02/15/25 08:13 Ionized Calcium 1.1 mmol/L (1.1-1.4) 02/15/25 08:13 O2 Delivery Device Room air 02/15/25 08:13 FiO2 21.0 % 02/15/25 08:13 Community Health Coordinator ID [place] 02/15/25 08:13 Sodium 140 mmol/L (136-145) 02/15/25 08:10 Potassium 4.2 mmol/L (3.5-5.1) 02/15/25 08:10 Chloride 103 mmol/L (98-107) 02/15/25 08:10 Carbon Dioxide 21 mmol/L (22-29) L 02/15/25 08:10 Anion Gap 20.2 (5-19) H 02/15/25 08:10 BUN 11 mg/dL (6-20) 02/15/25 08:10 Creatinine 0.8 mg/dL (0.5-0.9) 02/15/25 08:10 GFR Calculation 81.2 mL/min (90-130) L 02/15/25 08:10 Glucose 117 mg/dL (65-115) H 02/15/25 08:10 Calculated Osmolality 290 mOsm/kg (285-295) 02/15/25 08:10 Calcium 9.2 mg/dL (8.5-10.5) 02/15/25 08:10 Total Bilirubin 0.4 mg/dL (0.15-1.2) 02/15/25 08:10 AST 23 U/L (0-32) 02/15/25 08:10 ALT 33 U/L (0-33) 02/15/25 08:10 Alkaline Phosphatase 88 U/L (35-105) 02/15/25 08:10 Total Protein 7.7 g/dL (6.6-8.7) 02/15/25 08:10 Albumin 4.3 g/dL (3.5-5.2) 02/15/25 08:10 Globulin 3.4 g/dL (1.3-4.6) 02/15/25 08:10 Influenza A (PCR) Negative (Negative) 02/15/25 08:54 Influenza Type B (PCR) Negative (Negative) 02/15/25 08:54 RSV (PCR) Negative (Negative) 02/15/25 08:54 SARS-CoV-2 (PCR) Negative (Negative) 02/15/25 08:54 All radiology interpretation(s) finalized by discharge Discharge Plan Discharge Patient Disposition: Home Clinical Impression: Hyperventilation syndrome, Exposure to chemical inhalation Condition: Stable Prescriptions: New methylprednisolone [Medrol (Fuad)] 4 mg tablets,dose pack See Rx Instructions .ROUTE .COMPLEX Qty: 21 0RF Rx Instructions: orally per package directions albuterol sulfate 90 mcg/actuation HFA aerosol inhaler 2 inh INHALATION Q4H PRN (Reason: shortness of breath or wheezing) Qty: 18 0RF albuterol sulfate 2.5 mg /3 mL (0.083 %) solution for nebulization 2.5 mg inhalation Q6H PRN (Reason: shortness of breath or wheezing) Qty: 75 0RF hydroxyzine HCl 25 mg tablet 25 mg PO Q6H PRN (Reason: anxiety) Qty: 14 0RF No Action acetaminophen 325 mg Capsule 975 mg PO QID PRN (Reason: Pain) vitamin B complex Tablet 1 tab PO DAILY [facility] 45-4-50 mg Tablet,Chewable 1 tab PO DAILY PRN (Reason: colds) Discharge Orders: Discharge ED (Routine); Ordered 02/15/25 Ordered By: Jonathan Cronin Referrals: Carlos Chavarria MD [Primary Care Provider] - Discharge Diet: Usual diet Discharge Activity: Increase activity as tolerated Patient Instructions: Opioid Safety, Pain Management Activity Restrictions/Additional Instructions: Thank you for choosing [facility] for your healthcare needs today. It is very important that you follow up as instructed or that you return to the Emergency Department should you have concerns or if your condition changes or worsens in any way. You were seen in the emergency room with complaints of shortness of breath and sensation of your throat closing. When you first arrived you are hyperventilating her oxygen saturation was. Your chest x-ray appears normal there is no wheezing on exam. You may have some irritation from the chemical exposure last night. Recommend that you take the steroids daily as per the package instructions. Additionally you can use hydroxyzine as needed. Also refilled your albuterol inhaler and nebulizer solution. Stand Alone Forms: Work/School Release Print Language: Slovenian Coding Level of Care Code ED [employer] for Pilar Basilio
[2025-02-15 08:17] VITALS: PULSE 79; RESP 24; O2SAT 99
[2025-02-15 08:25] LABS: ABG PCO2 24.3 mmHg (35-45); Alveolar-Arterial Oxygen Gradi 1.8 mmHg (5-10); Base Excess ABG -2.7 mmol/L (-2.0-2.0); Blood Gas Allen Test Pos; Blood Gas Operator Identificat WALCI; Blood Gas Sample Site Radial, right; Blood Gas Sample Type Arterial; HCO3 ABG 18.8 mmol/L (22-26); HGB O2 Sat 97.1 % (95-100); Ionized Calcium Level - ABG 1.1 mmol/L (1.1-1.4); Methemoglobin 0.9 % (0.4-1.5); Oxygen Device ROOM AIR; Oxygen Saturation ABG 99.1; PO2 FiO2 Ratio Arterial Blood 490; Potassium Level - ABG 3.5 mmol/L (3.5-5.0); Total Hemoglobin 14.4 g/dL (12-16)
[2025-02-15 08:31] VITALS: PULSE 88
[2025-02-15] MEDS: ipratropium-albuterol 3 mL Neb INHALATION (08:31)
[2025-02-15 08:35] LABS: Basophils # 0.1 10^3/uL (0.0-0.1); Basophils % 0.8 %; Eosinophils # 0.1 10^3/uL (0.0-0.8); Hematocrit 41.9 % (36-47); Lymphocytes % 35.4 %; Mean Corpuscular HGB Conc 33.2 g/dL (30-55); Mean Corpuscular Volume 90.5 fl (85-98); Mean Platelet Volume 10.5 fL (7.4-10.4); Monocytes # 0.5 10^3/uL (0.2-0.9); Monocytes % 6.1 %; Neutrophils # 4.71 10^3/uL (1.8-7.7); Neutrophils % 56.5 %; Nucleated Red Blood Cells % 0 %; Platelet Count 297 10^3/cmm (157-399); Red Blood Count 4.63 10^6/uL (3.85-5.65); Red Cell Distribution Width 12.7 % (12.1-15.1); White Blood Count 8.34 10^3/uL (3.29-11.43)
[2025-02-15] MEDS: LORazepam 2 mg/mL INJ 1 mL 1 MG IVP (08:45)
[2025-02-15 09:10] LABS: Alanine Aminotransferase 33 U/L (0-33); Albumin Level 4.3 g/dL (3.5-5.2); Alkaline Phosphatase 88 U/L (35-105); Anion Gap 20.2 (5-19); Aspartate Amino Transferase 23 U/L (0-32); Blood Urea Nitrogen 11 mg/dL (6-20); Calcium 9.2 mg/dL (8.5-10.5); Carbon Dioxide 21 mmol/L (22-29); Chloride 103 mmol/L (98-107); Creatinine Clr Calc Pharmacy 126.5059; Globulin 3.4 g/dL (1.3-4.6); Glomerular Filtration Rate 81.2 mL/min (90-130); Glucose 117 mg/dL (65-115); Osmolality Calculated 290 mOsm/kg (285-295); Potassium 4.2 mmol/L (3.5-5.1); Sodium 140 mmol/L (136-145); Total Bilirubin 0.4 mg/dL (0.15-1.2); Total Protein 7.7 g/dL (6.6-8.7)
[2025-02-15 09:46] LABS: Influenza A NEGATIVE (Negative); Influenza B NEGATIVE (Negative); Respiratory Syncytial Virus Ce NEGATIVE (Negative); SARS-CoV-2 PCR NEGATIVE (Negative)
[2025-02-15 09:56] VITALS: BP 139/100; PULSE 89; O2SAT 95
== END 2025-02-15 09:57 | disposition home or self-care (01) ==
PROVIDERS: Emergency Provider Family Medicine; PCP Family Medicine
DX: F45.8 Other somatoform disorders (principal); J68.9 Unspecified respiratory condition due to chemicals, gases, fumes and vapors; Z11.52 Encounter for screening for COVID-19; F17.290 Nicotine dependence, other tobacco product, uncomplicated
CPT/HCPCS: 36600; 71045; 80051; 80053; 82330; 82805; 85025; 87637; 93005; 94640; 96374; 99285; J2060; J9999